=== PATIENT | female | born 1955 | race Two or more races ===

== ENCOUNTER 2016-08-17 16:51 | Inpatient (IN) | payer OTHER ==
[~2016-08-17] VITALS: Ht 152.4 cm; Wt 59.9 kg
[2016-08-17] MEDS ORDERED: DOCU100T9 PO (17:09)
[2016-08-17] MEDS ORDERED: PROP10TA10 PO (17:09)
[2016-08-17] MEDS ORDERED: IV NS 0.9% 500 ML IV ONE (17:22)
[2016-08-17] MEDS ORDERED: IV SET PRIMARY PUMP SET 1 EA INFUS.SET MC ONE ×3 (17:22→21:49)
[2016-08-17] MEDS ORDERED: IV NS 0.9% 500 ML BAG IV ONE (17:30)
[2016-08-17 18:02] LABS: BASOPHILS % (AUTO) 0.4 % (0.0-2.0); EOSINOPHILS % (AUTO) 1.2 % (0.0-6.0); HEMATOCRIT 25 % (33-45); HEMOGLOBIN 8.4 g/dL (11.5-14.8); LYMPHOCYTES # (AUTO) 0.6 /CMM (0.8-4.8); LYMPHOCYTES % (AUTO) 15.9 % (20.0-44.0); MEAN CORPUSCULAR HEMOGLOBIN 31 PG (26.0-33.0); MEAN CORPUSCULAR HGB CONC 34 g/dl (31.0-36.0); MEAN CORPUSCULAR VOLUME 91 fL (82-100); MONOCYTES # (AUTO) 0.4 /CMM (0.1-1.30); MONOCYTES % (AUTO) 8.6 % (2.0-12.0); NEUTROPHILS % (AUTO) 73.9 % (43.0-81.0); PLATELET COUNT (AUTO) 60 /CMM (150-450); RED BLOOD CELL COUNT(AUTO) 2.75 MIL/uL (4.0-5.2); WHITE BLOOD COUNT (AUTO) 4.1 K/uL (4.3-11.0)
[2016-08-17 18:18] LABS: DIFF TOTAL % 100 %
[2016-08-17 18:24] LABS: ANION GAP 13 (5-14); CALCIUM, SERUM 8.8 mg/dL (8.5-10.1); CARBON DIOXIDE 24 mmol/L (21-32); CHLORIDE 109 mmol/L (98-107); CREATININE 3.9 mg/dL (0.6-1.3); GFR 12 mL/min (>60); GLUCOSE 250 mg/dL (74-106); POTASSIUM 4.3 mmol/L (3.5-5.1); SODIUM SERUM 142 mmol/L (136-145); UREA NITROGEN, BLOOD 69 mg/dL (7-18)
[2016-08-17 18:29] LABS: ALANINE AMINOTRANSFERASE 25 U/L (12-78); ALBUMIN 2.2 g/dL (3.4-5.0); ASPARTATE AMINOTRANSFERASE 27 U/L (15-37); BILIRUBIN,DIRECT 1.6 mg/dL (0.0-0.2); BILIRUBIN,TOTAL 2.8 mg/dL (0.2-1.0); INDIRECT BILIRUBIN 1.2 mg/dL (0.0-1.1); TOTAL PROTEIN, SERUM 6.8 g/dL (6.4-8.2)
[2016-08-17 18:47] LABS: ANISOCYTOSIS 1+; BAND % (MANUAL) 1 % (0.0-5.0); EOSINOPHILS % (MANUAL) 1 % (0-4); LYMPHOCYTES % (MANUAL) 16 % (16-48); PLATELET ESTIMATE DECRE
[2016-08-17 19:05] LABS: LACTIC ACID 2.5 mmol/L (0.4-2.0)
[2016-08-17 19:12] LABS: *LACTIC ACID REFLEX FLAG YES
[2016-08-17] MEDS ORDERED: LEVOFLOXACIN 750 MG /D5W 150ML 150 ML IV ONE ×2 (19:30→19:33)
[2016-08-17] MEDS ORDERED: METRONIDAZOLE 500MG/ NS 100ML 100 ML IV ONE ×2 (19:30→19:33)
[2016-08-17] MEDS ORDERED: IV NS 0.9% 1,000 ML BAG IV ONE (19:30)
[2016-08-17] MEDS ORDERED: LACTULOSE 10 G/15 ML UDC (PYXIS) GT ONE (19:30)
[2016-08-17] MEDS ORDERED: LACTULOSE 10 G/15 ML UDC (PYXIS) ONE (19:33)
[2016-08-17] MEDS ORDERED: IV NS 0.9% 1,000 ML ONE ×2 (19:33→21:48)
[2016-08-17] MEDS ORDERED: IV SET PRIMARY 1 EA INFUS.SET MC ONE (19:33)
[2016-08-17 20:07] LABS: INR 1.24 (0.87-1.13); PROTHROMBIN TIME 13.4 SECS (9.5-12.7)
[2016-08-17 20:44] LABS: ADD UA MICROSCOPIC NO; KETONES,URINE NEGATIVE (NEGATIVE); LEUKOCYTE ESTERASE ,URINE NEGATIVE (NEGATIVE); PH,URINE 5.5 (5.0-8.0)
[2016-08-17] MEDS ORDERED: MAG HYDROX/AL HYDROX/SIMETH 30 ML UDC PO PRN (21:00)
[2016-08-17] MEDS ORDERED: LACTULOSE 10 G/15 ML UDC (PYXIS) PO PRN (21:00)
[2016-08-17] MEDS ORDERED: PROPRANOLOL HCL 10 MG TABLET PO SCH (21:00)
[2016-08-17] MEDS ORDERED: MAGNESIUM HYDROXIDE 30 ML UDC PO PRN (21:00)
[2016-08-17] MEDS ORDERED: Z GUARD REMEDY 2 OZ OINT TP PRN (21:00)
[2016-08-17 21:40] VITALS: BP 119/50
[2016-08-17] MEDS: IV NS 0.9% 1,000 ML IV PRN (21:53)
[2016-08-18] VITALS: BP 102/47
[2016-08-18 04:00] VITALS: BP 111/51
[2016-08-18 07:14] LABS: BASOPHILS % (AUTO) 0.7 % (0.0-2.0); DIFF TOTAL % 100 %; EOSINOPHILS % (AUTO) 1.4 % (0.0-6.0); HEMATOCRIT 24 % (33-45); HEMOGLOBIN 8.2 g/dL (11.5-14.8); LYMPHOCYTES # (AUTO) 0.5 /CMM (0.8-4.8); LYMPHOCYTES % (AUTO) 17.7 % (20.0-44.0); MEAN CORPUSCULAR HEMOGLOBIN 32 PG (26.0-33.0); MEAN CORPUSCULAR HGB CONC 34 g/dl (31.0-36.0); MEAN CORPUSCULAR VOLUME 92 fL (82-100); MONOCYTES # (AUTO) 0.3 /CMM (0.1-1.30); MONOCYTES % (AUTO) 11.8 % (2.0-12.0); NEUTROPHILS # (AUTO) 1.8 /CMM (1.8-8.9); NEUTROPHILS % (AUTO) 68.4 % (43.0-81.0); RED BLOOD CELL COUNT(AUTO) 2.62 MIL/uL (4.0-5.2); WHITE BLOOD COUNT (AUTO) 2.6 K/uL (4.3-11.0)
[2016-08-18 07:36] LABS: CALCIUM, SERUM 8.9 mg/dL (8.5-10.1); CREATININE 3.6 mg/dL (0.6-1.3); PHOSPHORUS 3.5 mg/dL (2.5-4.9); POTASSIUM 3.6 mmol/L (3.5-5.1)
[2016-08-18 08:00] VITALS: BP 138/48
[2016-08-18 08:02] LABS: PLATELET COUNT (AUTO) 48 /CMM (150-450)
[2016-08-18 08:08] LABS: BAND % (MANUAL) 3 % (0.0-5.0); EOSINOPHILS % (MANUAL) 2 % (0-4); LYMPHOCYTES % (MANUAL) 19 % (16-48); PLATELET ESTIMATE DECREASED
[2016-08-18] MEDS: PANTOPRAZOLE 40 MG TABLET.DR PO SCH (10:09)
[2016-08-18] MEDS: PROPRANOLOL HCL 10 MG TABLET PO SCH (10:10)
[2016-08-18] MEDS: IV NS 0.9% 1,000 ML IV PRN (12:46)
[2016-08-18 16:00] VITALS: BP 115/50
[2016-08-18 20:00] VITALS: BP 99/46
[2016-08-18] MEDS ORDERED: LEVOFLOXACIN 250 MG /D5W 50 ML 250 MG in PREMIX 1 EA IV SCH (20:00)
[2016-08-18] MEDS ORDERED: LEVOFLOXACIN 250 MG /D5W 50 ML 250 MG/50 ML PIGGYBACK IV ONE (21:00)
[2016-08-19] VITALS (8 sets, daily range): BP systolic 91–97; BP diastolic 42–51
[2016-08-19] MEDS: IV NS 0.9% 1,000 ML IV PRN ×2 (02:28→17:13)
[2016-08-19] MEDS ORDERED: PLATELET IV SET 1 EA INFUS.SET MC ONE (02:50)
[2016-08-19 08:15] LABS: BASOPHILS % (AUTO) 0.8 % (0.0-2.0); DIFF TOTAL % 100 %; EOSINOPHILS % (AUTO) 1.8 % (0.0-6.0); HEMATOCRIT 21 % (33-45); HEMOGLOBIN 7.2 g/dL (11.5-14.8); LYMPHOCYTES # (AUTO) 0.6 /CMM (0.8-4.8); LYMPHOCYTES % (AUTO) 25.8 % (20.0-44.0); MEAN CORPUSCULAR HEMOGLOBIN 32 PG (26.0-33.0); MEAN CORPUSCULAR HGB CONC 34 g/dl (31.0-36.0); MEAN CORPUSCULAR VOLUME 92 fL (82-100); MONOCYTES # (AUTO) 0.3 /CMM (0.1-1.30); MONOCYTES % (AUTO) 13.6 % (2.0-12.0); NEUTROPHILS # (AUTO) 1.3 /CMM (1.8-8.9); PLATELET COUNT (AUTO) 60 /CMM (150-450); WHITE BLOOD COUNT (AUTO) 2.2 K/uL (4.3-11.0)
[2016-08-19 08:30] LABS: BILIRUBIN,TOTAL 1.9 mg/dL (0.2-1.0); CALCIUM, SERUM 8.9 mg/dL (8.5-10.1); CREATININE 3.5 mg/dL (0.6-1.3); PHOSPHORUS 3.4 mg/dL (2.5-4.9); POTASSIUM 3.7 mmol/L (3.5-5.1); TOTAL PROTEIN, SERUM 6.1 g/dL (6.4-8.2)
[2016-08-19] MEDS: PROPRANOLOL HCL 10 MG TABLET PO SCH (08:30)
[2016-08-19] MEDS: PANTOPRAZOLE 40 MG TABLET.DR PO SCH (09:13)
[2016-08-19] MEDS: LACTULOSE 10 G/15 ML UDC (PYXIS) PO SCH ×3 (12:44→20:33)
[2016-08-19 14:52] LABS: CREATININE, URINE 128.7 MG/DL (30.0-125.0); URINE SODIUM, RANDOM < 5 mmol/l (40-220)
[2016-08-19 14:59] LABS: ADD UA MICROSCOPIC NO; KETONES,URINE NEGATIVE (NEGATIVE); LEUKOCYTE ESTERASE ,URINE NEGATIVE (NEGATIVE); PH,URINE 5.5 (5.0-8.0)
[2016-08-19 17:51] LABS: PROTEIN, BODY FLUID < 2.0 G/DL
[2016-08-19 18:01] LABS: GLUCOSE,BODY FLUID 244 mg/dL; LDH, BODY FLUID 35 U/L
[2016-08-19 18:18] LABS: APPEARANCE,UNSPUN,BODY FLUID CLEAR (CLEAR); COLOR,BODY FLUID YELLOW (LT YELLOW); RBC, BODY FLUID 228 /cu. mm. (0-2000); WBC, BODY FLUID 43 /cu. mm. (0-200)
[2016-08-19 18:54] LABS: POLYNUCLEAR, BODY FLUID 16 % (0-25)
[2016-08-19] MEDS ORDERED: LEVOFLOXACIN (250MG) 250 MG TABLET PO SCH (20:00)
[2016-08-19] MEDS ORDERED: LEVOFLOXACIN 250 MG /D5W 50 ML 250 MG in PREMIX 1 EA IV SCH (20:00)
[2016-08-19] MEDS: LEVOFLOXACIN (250MG) 250 MG TABLET PO SCH (20:32)
[2016-08-19] MEDS: NYSTATIN (PYXIS) 500,000 UNIT/5 ML ORAL.SUSP PO SCH (20:34)
[2016-08-20] MEDS: LACTULOSE 10 G/15 ML UDC (PYXIS) PO SCH ×6 (01:15→21:25)
[2016-08-20 04:00] VITALS: BP 98/49
[2016-08-20] MEDS: PANTOPRAZOLE 40 MG TABLET.DR PO SCH (07:30)
[2016-08-20 07:50] LABS: BASOPHILS % (AUTO) 0.6 % (0.0-2.0); DIFF TOTAL % 100 %; EOSINOPHILS % (AUTO) 2.4 % (0.0-6.0); HEMATOCRIT 23 % (33-45); LYMPHOCYTES # (AUTO) 0.5 /CMM (0.8-4.8); LYMPHOCYTES % (AUTO) 22.6 % (20.0-44.0); MEAN CORPUSCULAR HEMOGLOBIN 32 PG (26.0-33.0); MEAN CORPUSCULAR HGB CONC 34 g/dl (31.0-36.0); MEAN CORPUSCULAR VOLUME 92 fL (82-100); MONOCYTES # (AUTO) 0.3 /CMM (0.1-1.30); MONOCYTES % (AUTO) 13.8 % (2.0-12.0); NEUTROPHILS # (AUTO) 1.2 /CMM (1.8-8.9); NEUTROPHILS % (AUTO) 60.6 % (43.0-81.0); PLATELET COUNT (AUTO) 51 /CMM (150-450); RED BLOOD CELL COUNT(AUTO) 2.52 MIL/uL (4.0-5.2)
[2016-08-20 08:00] VITALS: BP 97/51
[2016-08-20 08:16] LABS: *SPE ALBUMIN 2.3 g/dL (2.9-4.4)
[2016-08-20 08:25] LABS: CALCIUM, SERUM 8.6 mg/dL (8.5-10.1); CREATININE 3.2 mg/dL (0.6-1.3); POTASSIUM 3.1 mmol/L (3.5-5.1)
[2016-08-20] MEDS: PROPRANOLOL HCL 10 MG TABLET PO SCH (09:00)
[2016-08-20] MEDS: NYSTATIN (PYXIS) 500,000 UNIT/5 ML ORAL.SUSP PO SCH ×3 (09:00→17:00)
[2016-08-20] MEDS ORDERED: POTASSIUM CHLORIDE 20 MEQ TAB.PRT.SR PO ONE (11:00)
[2016-08-20 12:14] LABS: PTH, INTACT 289 pg/mL (15-65)
[2016-08-20] MEDS ORDERED: POTASSIUM CHLORIDE 20 MEQ TAB.PRT.SR PO SCH (12:30)
[2016-08-20 13:43] LABS: ANISOCYTOSIS 1+; EOSINOPHILS % (MANUAL) 3 % (0-4); LYMPHOCYTES % (MANUAL) 15 % (16-48); PLATELET ESTIMATE DECREASED
[2016-08-20] MEDS ORDERED: SECONDARY IV SET 1 EA INFUS.SET MC ONE (14:30)
[2016-08-20] MEDS: Magnesium 1GM/D5W 100ML PREMIX 100 ML IV SCH ×4 (14:34→21:25)
[2016-08-20] MEDS ORDERED: IV SET PRIMARY PUMP SET 1 EA INFUS.SET MC ONE (14:35)
[2016-08-20 14:44] LABS: THYROID STIMULATING HORMONE 0.964 uIU/mL (0.358-3.74)
[2016-08-20 20:00] VITALS: BP 103/59
[2016-08-20] MEDS ORDERED: Magnesium 1GM/D5W 100ML PREMIX 100 ML IV ONE (21:20)
[2016-08-20] MEDS: LEVOFLOXACIN (250MG) 250 MG TABLET PO SCH (21:25)
[2016-08-21] MEDS: LACTULOSE 10 G/15 ML UDC (PYXIS) PO SCH ×6 (01:12→20:30)
[2016-08-21 04:00] VITALS: BP 96/56
[2016-08-21 07:47] LABS: CALCIUM, SERUM 9.3 mg/dL (8.5-10.1); CREATININE 3.4 mg/dL (0.6-1.3); PHOSPHORUS 3.9 mg/dL (2.5-4.9)
[2016-08-21 07:59] LABS: BASOPHILS % (AUTO) 0.3 % (0.0-2.0); DIFF TOTAL % 100 %; EOSINOPHILS # (AUTO) 0.1 /CMM (0.0-0.7); EOSINOPHILS % (AUTO) 2.9 % (0.0-6.0); HEMATOCRIT 27 % (33-45); HEMOGLOBIN 9.4 g/dL (11.5-14.8); LYMPHOCYTES # (AUTO) 0.7 /CMM (0.8-4.8); LYMPHOCYTES % (AUTO) 17.8 % (20.0-44.0); MEAN CORPUSCULAR HEMOGLOBIN 32 PG (26.0-33.0); MEAN CORPUSCULAR HGB CONC 34 g/dl (31.0-36.0); MEAN CORPUSCULAR VOLUME 93 fL (82-100); MONOCYTES # (AUTO) 0.4 /CMM (0.1-1.30); MONOCYTES % (AUTO) 9.9 % (2.0-12.0); NEUTROPHILS # (AUTO) 2.7 /CMM (1.8-8.9); NEUTROPHILS % (AUTO) 69.1 % (43.0-81.0); PLATELET COUNT (AUTO) 56 /CMM (150-450); RED BLOOD CELL COUNT(AUTO) 2.93 MIL/uL (4.0-5.2)
[2016-08-21 08:00] VITALS: BP 112/57
[2016-08-21] MEDS: NYSTATIN (PYXIS) 500,000 UNIT/5 ML ORAL.SUSP PO SCH ×3 (08:01→16:37)
[2016-08-21] MEDS: PANTOPRAZOLE 40 MG TABLET.DR PO SCH (08:01)
[2016-08-21] MEDS: PROPRANOLOL HCL 10 MG TABLET PO SCH (08:02)
[2016-08-21] MEDS ORDERED: *INSULIN REGULAR(HUMULIN R)HUM 100 UNIT/ML VIAL SQ PRN (09:30)
[2016-08-21] MEDS ORDERED: DEXTROSE 50%-WATER 50 ML DISP.SYRIN IV PRN (09:30)
[2016-08-21] MEDS: INSULIN REGULAR, HUMAN 100 UNIT/ML 3 ML VIAL SQ PRN ×2 (11:56→22:35)
[2016-08-21] MEDS: BLOOD SUGAR DIAGNOSTIC 1 EACH STRIP VI SCH ×3 (11:58→22:32)
[2016-08-21 12:00] VITALS: BP 112/57
[2016-08-21] MEDS ORDERED: BLOOD SUGAR DIAGNOSTIC 1 EACH STRIP IN SCH (12:00)
[2016-08-21 16:00] VITALS: BP 99/52
[2016-08-21 20:00] VITALS: BP 105/50
[2016-08-21] MEDS: LEVOFLOXACIN (250MG) 250 MG TABLET PO SCH (20:30)
[2016-08-22] MEDS: LACTULOSE 10 G/15 ML UDC (PYXIS) PO SCH ×6 (01:17→21:21)
[2016-08-22 04:00] VITALS: BP 100/54
[2016-08-22] MEDS: BLOOD SUGAR DIAGNOSTIC 1 EACH STRIP VI SCH ×4 (07:30→21:21)
[2016-08-22 08:00] VITALS: BP 91/44
[2016-08-22 08:10] LABS: CALCIUM, SERUM 9.1 mg/dL (8.5-10.1); CREATININE 3.7 mg/dL (0.6-1.3)
[2016-08-22] MEDS: PROPRANOLOL HCL 10 MG TABLET PO SCH (10:19)
[2016-08-22] MEDS: PANTOPRAZOLE 40 MG TABLET.DR PO SCH (10:19)
[2016-08-22] MEDS: HYDROCODONE/APAP 5/325MG 1 EACH TABLET PO PRN (10:20)
[2016-08-22] MEDS: NYSTATIN (PYXIS) 500,000 UNIT/5 ML ORAL.SUSP PO SCH ×3 (10:20→17:00)
[2016-08-22 12:00] VITALS: BP 110/41
[2016-08-22 13:22] LABS: ALBUMIN 2.2 g/dL (3.4-5.0); BILIRUBIN,DIRECT 0.9 mg/dL (0.0-0.2); BILIRUBIN,TOTAL 1.8 mg/dL (0.2-1.0); INDIRECT BILIRUBIN 0.9 mg/dL (0.0-1.1); TOTAL PROTEIN, SERUM 6.7 g/dL (6.4-8.2)
[2016-08-22] MEDS ORDERED: IV SET PRIMARY PUMP SET 1 EA INFUS.SET MC ONE (17:58)
[2016-08-22] MEDS ORDERED: IV NS 0.9% 250 ML IV ONE (17:58)
[2016-08-22] MEDS ORDERED: SECONDARY IV SET 1 EA INFUS.SET MC ONE (17:58)
[2016-08-22] MEDS: ALBUMIN 25% 25 GM in PREMIX 1 EA IV SCH ×2 (18:02→21:41)
[2016-08-22 20:00] VITALS: BP 114/61
[2016-08-22] MEDS: INSULIN REGULAR, HUMAN 100 UNIT/ML 3 ML VIAL SQ PRN (21:25)
[2016-08-23] MEDS: LACTULOSE 10 G/15 ML UDC (PYXIS) PO SCH ×6 (00:52→21:32)
[2016-08-23] MEDS: ALBUMIN 25% 25 GM in PREMIX 1 EA IV SCH ×2 (03:52→09:25)
[2016-08-23 04:00] VITALS: BP 91/49
[2016-08-23 04:11] VITALS: BP 91/49
[2016-08-23] MEDS: BLOOD SUGAR DIAGNOSTIC 1 EACH STRIP VI SCH ×4 (06:33→21:31)
[2016-08-23] MEDS: INSULIN REGULAR, HUMAN 100 UNIT/ML 3 ML VIAL SQ PRN ×4 (06:37→21:37)
[2016-08-23 07:34] LABS: CALCIUM, SERUM 9.3 mg/dL (8.5-10.1); CREATININE 3.9 mg/dL (0.6-1.3); POTASSIUM 4.5 mmol/L (3.5-5.1)
[2016-08-23 08:00] VITALS: BP_SYST 109; BP_DIAS 45; BP_DIAS 65
[2016-08-23] MEDS: PROPRANOLOL HCL 10 MG TABLET PO SCH (08:02)
[2016-08-23] MEDS: NYSTATIN (PYXIS) 500,000 UNIT/5 ML ORAL.SUSP PO SCH ×3 (08:02→16:40)
[2016-08-23] MEDS: PANTOPRAZOLE 40 MG TABLET.DR PO SCH (08:02)
[2016-08-23] MEDS: MIDODRINE HCL (5MG) 5 MG TABLET PO SCH ×2 (12:55→16:49)
[2016-08-23] MEDS ORDERED: OCTREOTIDE 50 MCG/ML AMPUL SQ SCH (13:00)
[2016-08-23] MEDS: OCTREOTIDE 100 MCG/ML VIAL SQ SCH ×2 (13:21→16:51)
[2016-08-23 16:00] VITALS: BP 103/48
[2016-08-23 20:00] VITALS: BP 105/34
[2016-08-24] MEDS: LACTULOSE 10 G/15 ML UDC (PYXIS) PO SCH ×6 (01:24→21:11)
[2016-08-24 04:00] VITALS: BP 103/56
[2016-08-24] MEDS: BLOOD SUGAR DIAGNOSTIC 1 EACH STRIP VI SCH ×4 (06:34→21:12)
[2016-08-24] MEDS: INSULIN REGULAR, HUMAN 100 UNIT/ML 3 ML VIAL SQ PRN ×2 (06:37→12:58)
[2016-08-24 07:32] LABS: BILIRUBIN,TOTAL 2.1 mg/dL (0.2-1.0); CALCIUM, SERUM 9.1 mg/dL (8.5-10.1); CREATININE 4.9 mg/dL (0.6-1.3); POTASSIUM 4.5 mmol/L (3.5-5.1); TOTAL PROTEIN, SERUM 6.1 g/dL (6.4-8.2)
[2016-08-24 08:00] VITALS: BP_SYST 98; BP_DIAS 37; BP_DIAS 77
[2016-08-24] MEDS: PROPRANOLOL HCL 10 MG TABLET PO SCH (09:00)
[2016-08-24] MEDS: NYSTATIN (PYXIS) 500,000 UNIT/5 ML ORAL.SUSP PO SCH ×3 (09:21→16:17)
[2016-08-24] MEDS: MIDODRINE HCL (5MG) 5 MG TABLET PO SCH ×3 (09:21→16:17)
[2016-08-24] MEDS: PANTOPRAZOLE 40 MG TABLET.DR PO SCH (09:21)
[2016-08-24] MEDS: OCTREOTIDE 100 MCG/ML VIAL SQ SCH ×3 (09:23→16:17)
[2016-08-24 15:40] LABS: CREATININE, URINE 317.8 MG/DL (30.0-125.0); URINE SODIUM, RANDOM < 5 mmol/l (40-220)
[2016-08-24 15:44] LABS: KETONES,URINE 1+ (NEGATIVE); LEUKOCYTE ESTERASE ,URINE 1+ (NEGATIVE)
[2016-08-24 15:47] LABS: ADD UA MICROSCOPIC YES
[2016-08-24 16:00] VITALS: BP 92/40
[2016-08-24 16:07] LABS: ADD URINE CULTURE YES; RBC,URINE 0-2 /HPF (0-2)
[2016-08-24] MEDS: HYDROCODONE/APAP 5/325MG 1 EACH TABLET PO PRN (19:57)
[2016-08-24 20:00] VITALS: BP 90/48
[2016-08-25] MEDS: LACTULOSE 10 G/15 ML UDC (PYXIS) PO SCH ×6 (01:40→20:56)
[2016-08-25 04:00] VITALS: BP_SYST 80; BP_SYST 91; BP_DIAS 42; BP_DIAS 43
[2016-08-25] MEDS: BLOOD SUGAR DIAGNOSTIC 1 EACH STRIP VI SCH ×4 (07:30→21:27)
[2016-08-25 07:42] LABS: CALCIUM, SERUM 8.9 mg/dL (8.5-10.1); CREATININE 6.2 mg/dL (0.6-1.3); POTASSIUM 4.4 mmol/L (3.5-5.1)
[2016-08-25 08:00] VITALS: BP 90/50
[2016-08-25] MEDS: OCTREOTIDE 100 MCG/ML VIAL SQ SCH ×3 (08:44→16:52)
[2016-08-25] MEDS: NYSTATIN (PYXIS) 500,000 UNIT/5 ML ORAL.SUSP PO SCH ×3 (08:44→16:52)
[2016-08-25] MEDS: MIDODRINE HCL (5MG) 5 MG TABLET PO SCH ×3 (08:45→16:52)
[2016-08-25] MEDS: PROPRANOLOL HCL 10 MG TABLET PO SCH (08:45)
[2016-08-25] MEDS: PANTOPRAZOLE 40 MG TABLET.DR PO SCH (08:45)
[2016-08-25 16:00] VITALS: BP 108/45
[2016-08-25 19:47] VITALS: BP 96/45
[2016-08-25 20:00] VITALS: BP 96/45
[2016-08-25] MEDS: INSULIN REGULAR, HUMAN 100 UNIT/ML 3 ML VIAL SQ PRN (21:26)
[2016-08-26] VITALS: BP 112/50
[2016-08-26] MEDS: LACTULOSE 10 G/15 ML UDC (PYXIS) PO SCH ×6 (01:20→20:58)
[2016-08-26 04:00] VITALS: BP 98/51
[2016-08-26 05:22] VITALS: BP 98/51
[2016-08-26] MEDS: BLOOD SUGAR DIAGNOSTIC 1 EACH STRIP VI SCH ×4 (05:37→21:30)
[2016-08-26] MEDS: ONDANSETRON HCL/PF 4 MG/2 ML VIAL IVP PRN (06:44)
[2016-08-26 06:55] LABS: BASOPHILS # (AUTO) 0.1 /CMM (0.0-0.2); BASOPHILS % (AUTO) 0.6 % (0.0-2.0); DIFF TOTAL % 100 %; EOSINOPHILS # (AUTO) 0.3 /CMM (0.0-0.7); EOSINOPHILS % (AUTO) 3.8 % (0.0-6.0); HEMATOCRIT 26 % (33-45); HEMOGLOBIN 8.5 g/dL (11.5-14.8); LYMPHOCYTES # (AUTO) 1.3 /CMM (0.8-4.8); LYMPHOCYTES % (AUTO) 15.7 % (20.0-44.0); MEAN CORPUSCULAR HEMOGLOBIN 31 PG (26.0-33.0); MEAN CORPUSCULAR HGB CONC 33 g/dl (31.0-36.0); MEAN CORPUSCULAR VOLUME 95 fL (82-100); MONOCYTES # (AUTO) 0.9 /CMM (0.1-1.30); MONOCYTES % (AUTO) 11.1 % (2.0-12.0); NEUTROPHILS # (AUTO) 5.6 /CMM (1.8-8.9); NEUTROPHILS % (AUTO) 68.8 % (43.0-81.0); PLATELET COUNT (AUTO) 80 /CMM (150-450); RED BLOOD CELL COUNT(AUTO) 2.72 MIL/uL (4.0-5.2); WHITE BLOOD COUNT (AUTO) 8.1 K/uL (4.3-11.0)
[2016-08-26 07:16] LABS: CALCIUM, SERUM 9.1 mg/dL (8.5-10.1); CREATININE 7.4 mg/dL (0.6-1.3); POTASSIUM 4.4 mmol/L (3.5-5.1)
[2016-08-26 08:00] VITALS: BP 108/40
[2016-08-26] MEDS: OCTREOTIDE 100 MCG/ML VIAL SQ SCH ×3 (08:41→16:40)
[2016-08-26] MEDS: NYSTATIN (PYXIS) 500,000 UNIT/5 ML ORAL.SUSP PO SCH ×3 (08:42→16:40)
[2016-08-26] MEDS: PROPRANOLOL HCL 10 MG TABLET PO SCH (08:42)
[2016-08-26] MEDS: PANTOPRAZOLE 40 MG TABLET.DR PO SCH (08:42)
[2016-08-26] MEDS: MIDODRINE HCL (5MG) 5 MG TABLET PO SCH ×3 (08:42→16:42)
[2016-08-26] MEDS: INSULIN REGULAR, HUMAN 100 UNIT/ML 3 ML VIAL SQ PRN ×2 (11:44→17:35)
[2016-08-26 13:35] LABS: INR 1.22 (0.87-1.13); PROTHROMBIN TIME 13.2 SECS (9.5-12.7)
[2016-08-26 16:00] VITALS: BP 118/78
[2016-08-26 20:00] VITALS: BP 106/41
[2016-08-27] MEDS: LACTULOSE 10 G/15 ML UDC (PYXIS) PO SCH ×6 (01:00→20:29)
[2016-08-27 04:00] VITALS: BP 91/37
[2016-08-27] MEDS: BLOOD SUGAR DIAGNOSTIC 1 EACH STRIP VI SCH ×4 (04:55→22:28)
[2016-08-27 07:13] LABS: BASOPHILS % (AUTO) 0.8 % (0.0-2.0); DIFF TOTAL % 100 %; EOSINOPHILS # (AUTO) 0.2 /CMM (0.0-0.7); HEMATOCRIT 24 % (33-45); LYMPHOCYTES # (AUTO) 0.8 /CMM (0.8-4.8); LYMPHOCYTES % (AUTO) 13.8 % (20.0-44.0); MEAN CORPUSCULAR HEMOGLOBIN 32 PG (26.0-33.0); MEAN CORPUSCULAR HGB CONC 34 g/dl (31.0-36.0); MEAN CORPUSCULAR VOLUME 95 fL (82-100); MONOCYTES # (AUTO) 0.7 /CMM (0.1-1.30); MONOCYTES % (AUTO) 12.8 % (2.0-12.0); NEUTROPHILS # (AUTO) 3.9 /CMM (1.8-8.9); NEUTROPHILS % (AUTO) 68.6 % (43.0-81.0); PLATELET COUNT (AUTO) 58 /CMM (150-450); RED BLOOD CELL COUNT(AUTO) 2.51 MIL/uL (4.0-5.2); WHITE BLOOD COUNT (AUTO) 5.6 K/uL (4.3-11.0)
[2016-08-27 07:32] LABS: CALCIUM, SERUM 9.1 mg/dL (8.5-10.1); POTASSIUM 5.1 mmol/L (3.5-5.1)
[2016-08-27 07:47] LABS: CREATININE 8.4 mg/dL (0.6-1.3)
[2016-08-27 08:00] VITALS: BP 80/30
[2016-08-27 08:09] LABS: BAND % (MANUAL) 3 % (0.0-5.0); EOSINOPHILS % (MANUAL) 5 % (0-4); LYMPHOCYTES % (MANUAL) 14 % (16-48); PLATELET ESTIMATE DECREASED
[2016-08-27] MEDS: NYSTATIN (PYXIS) 500,000 UNIT/5 ML ORAL.SUSP PO SCH ×3 (08:21→17:00)
[2016-08-27] MEDS: PANTOPRAZOLE 40 MG TABLET.DR PO SCH (08:22)
[2016-08-27] MEDS: MIDODRINE HCL (5MG) 5 MG TABLET PO SCH ×3 (08:23→17:00)
[2016-08-27] MEDS: PROPRANOLOL HCL 10 MG TABLET PO SCH (08:23)
[2016-08-27] MEDS: OCTREOTIDE 100 MCG/ML VIAL SQ SCH ×3 (10:25→17:10)
[2016-08-27] MEDS ORDERED: IV NS 0.9% 1,000 ML BAG IV ONE (10:30)
[2016-08-27] MEDS ORDERED: IV NS 0.9% 500 ML IV ONE (10:30)
[2016-08-27] MEDS ORDERED: IV SET PRIMARY PUMP SET 1 EA INFUS.SET MC ONE (10:52)
[2016-08-27] MEDS ORDERED: EPOETIN ALFA (10,000 UNIT) 10,000 UNIT/ML VIAL IV ONE (13:00)
[2016-08-27] MEDS: ALBUMIN 25% 25 GM in PREMIX 1 EA IV SCH ×3 (15:26→22:24)
[2016-08-27 16:00] VITALS: BP 79/41
[2016-08-27] MEDS ORDERED: SECONDARY IV SET 1 EA INFUS.SET MC ONE (18:01)
[2016-08-27 20:00] VITALS: BP 85/42
[2016-08-28] VITALS (7 sets, daily range): BP systolic 81–123; BP diastolic 41–91
[2016-08-28] MEDS: LACTULOSE 10 G/15 ML UDC (PYXIS) PO SCH ×6 (00:25→21:14)
[2016-08-28] MEDS: ONDANSETRON HCL/PF 4 MG/2 ML VIAL IVP PRN (00:56)
[2016-08-28] MEDS: ALBUMIN 25% 25 GM in PREMIX 1 EA IV SCH (03:18)
[2016-08-28] MEDS: BLOOD SUGAR DIAGNOSTIC 1 EACH STRIP VI SCH ×4 (07:09→21:20)
[2016-08-28] MEDS: PROPRANOLOL HCL 10 MG TABLET PO SCH (09:00)
[2016-08-28] MEDS: NYSTATIN (PYXIS) 500,000 UNIT/5 ML ORAL.SUSP PO SCH ×3 (09:28→17:05)
[2016-08-28] MEDS: PANTOPRAZOLE 40 MG TABLET.DR PO SCH (09:28)
[2016-08-28] MEDS: MIDODRINE HCL (5MG) 5 MG TABLET PO SCH ×3 (09:28→17:05)
[2016-08-28 09:29] LABS: BASOPHILS % (AUTO) 0.4 % (0.0-2.0); DIFF TOTAL % 100 %; EOSINOPHILS % (AUTO) 0.7 % (0.0-6.0); LYMPHOCYTES # (AUTO) 0.3 /CMM (0.8-4.8); LYMPHOCYTES % (AUTO) 15.7 % (20.0-44.0); MEAN CORPUSCULAR HEMOGLOBIN 32 PG (26.0-33.0); MEAN CORPUSCULAR HGB CONC 34 g/dl (31.0-36.0); MEAN CORPUSCULAR VOLUME 95 fL (82-100); MONOCYTES # (AUTO) 0.3 /CMM (0.1-1.30); MONOCYTES % (AUTO) 12.4 % (2.0-12.0); NEUTROPHILS # (AUTO) 1.5 /CMM (1.8-8.9); NEUTROPHILS % (AUTO) 70.8 % (43.0-81.0); WHITE BLOOD COUNT (AUTO) 2.2 K/uL (4.3-11.0)
[2016-08-28] MEDS: OCTREOTIDE 100 MCG/ML VIAL SQ SCH ×3 (09:29→17:07)
[2016-08-28 09:37] LABS: CALCIUM, SERUM 9.4 mg/dL (8.5-10.1); POTASSIUM 4.4 mmol/L (3.5-5.1)
[2016-08-28 09:38] LABS: HEMATOCRIT 18 % (33-45); HEMOGLOBIN 6.1 g/dL (11.5-14.8)
[2016-08-28 09:39] LABS: PLATELET COUNT (AUTO) 31 /CMM (150-450)
[2016-08-28 10:28] LABS: EOSINOPHILS % (MANUAL) 1 % (0-4); LYMPHOCYTES % (MANUAL) 13 % (16-48); PLATELET ESTIMATE DECREASED
[2016-08-28 10:29] LABS: ANISOCYTOSIS 1+; HYPOCHROMASIA 1+
[2016-08-28] MEDS ORDERED: IV NS 0.9% 250 ML IV ONE (15:53)
[2016-08-28] MEDS ORDERED: BLOOD IV SET 1 EA INFUS.SET MC ONE (15:53)
[2016-08-29] MEDS: BLOOD SUGAR DIAGNOSTIC 1 EACH STRIP VI SCH ×4 (01:00→17:38)
[2016-08-29] MEDS: HYDROCODONE/APAP 5/325MG 1 EACH TABLET PO PRN ×2 (01:07→13:33)
[2016-08-29] MEDS: LACTULOSE 10 G/15 ML UDC (PYXIS) PO SCH ×6 (01:07→20:33)
[2016-08-29 04:00] VITALS: BP 100/49
[2016-08-29 07:30] LABS: BASOPHILS % (AUTO) 0.5 % (0.0-2.0); DIFF TOTAL % 100 %; EOSINOPHILS # (AUTO) 0.1 /CMM (0.0-0.7); EOSINOPHILS % (AUTO) 2.5 % (0.0-6.0); HEMATOCRIT 29 % (33-45); HEMOGLOBIN 9.9 g/dL (11.5-14.8); LYMPHOCYTES # (AUTO) 0.8 /CMM (0.8-4.8); LYMPHOCYTES % (AUTO) 21.8 % (20.0-44.0); MEAN CORPUSCULAR HEMOGLOBIN 32 PG (26.0-33.0); MEAN CORPUSCULAR HGB CONC 34 g/dl (31.0-36.0); MEAN CORPUSCULAR VOLUME 92 fL (82-100); MONOCYTES # (AUTO) 0.5 /CMM (0.1-1.30); MONOCYTES % (AUTO) 13.7 % (2.0-12.0); NEUTROPHILS # (AUTO) 2.3 /CMM (1.8-8.9); NEUTROPHILS % (AUTO) 61.5 % (43.0-81.0); RED BLOOD CELL COUNT(AUTO) 3.15 MIL/uL (4.0-5.2); WHITE BLOOD COUNT (AUTO) 3.8 K/uL (4.3-11.0)
[2016-08-29] MEDS: PANTOPRAZOLE 40 MG TABLET.DR PO SCH (07:30)
[2016-08-29 07:50] LABS: BILIRUBIN,TOTAL 4.7 mg/dL (0.2-1.0); CALCIUM, SERUM 9.3 mg/dL (8.5-10.1); CREATININE 5.4 mg/dL (0.6-1.3); POTASSIUM 3.4 mmol/L (3.5-5.1); TOTAL PROTEIN, SERUM 6.4 g/dL (6.4-8.2)
[2016-08-29 08:00] VITALS: BP_SYST 80; BP_SYST 90; BP_DIAS 45; BP_DIAS 59
[2016-08-29 08:10] LABS: PLATELET COUNT (AUTO) 30 /CMM (150-450)
[2016-08-29 08:11] LABS: INR 1.69 (0.87-1.13); PROTHROMBIN TIME 18.3 SECS (9.5-12.7)
[2016-08-29] MEDS: PROPRANOLOL HCL 10 MG TABLET PO SCH (09:00)
[2016-08-29] MEDS: NYSTATIN (PYXIS) 500,000 UNIT/5 ML ORAL.SUSP PO SCH ×3 (09:00→17:37)
[2016-08-29] MEDS ORDERED: LIDOCAINE 1% INJ 50 ML MDV IJ ONE (09:00)
[2016-08-29] MEDS: OCTREOTIDE 100 MCG/ML VIAL SQ SCH ×3 (09:00→17:00)
[2016-08-29] MEDS: MIDODRINE HCL (5MG) 5 MG TABLET PO SCH ×3 (09:00→17:34)
[2016-08-29 10:17] LABS: EOSINOPHILS % (MANUAL) 2 % (0-4); LYMPHOCYTES % (MANUAL) 23 % (16-48)
[2016-08-29 10:18] LABS: ANISOCYTOSIS 1+; PLATELET ESTIMATE DECREASED
[2016-08-29 16:00] VITALS: BP 109/59
[2016-08-29 20:00] VITALS: BP 92/49
[2016-08-29] MEDS ORDERED: IV NS 0.9% 250 ML IV ONE (21:28)
[2016-08-29] MEDS ORDERED: BLOOD IV SET 1 EA INFUS.SET MC ONE (21:28)
[2016-08-29 21:43] VITALS: BP 92/49
[2016-08-29 22:40] VITALS: BP 90/56
[2016-08-30] VITALS (7 sets, daily range): BP systolic 83–113; BP diastolic 42–55
[2016-08-30] MEDS: LACTULOSE 10 G/15 ML UDC (PYXIS) PO SCH ×6 (01:19→21:18)
[2016-08-30 06:55] LABS: BASOPHILS % (AUTO) 0.5 % (0.0-2.0); DIFF TOTAL % 100 %; EOSINOPHILS # (AUTO) 0.1 /CMM (0.0-0.7); HEMATOCRIT 28 % (33-45); HEMOGLOBIN 9.5 g/dL (11.5-14.8); LYMPHOCYTES # (AUTO) 0.5 /CMM (0.8-4.8); LYMPHOCYTES % (AUTO) 16.2 % (20.0-44.0); MEAN CORPUSCULAR HEMOGLOBIN 31 PG (26.0-33.0); MEAN CORPUSCULAR HGB CONC 33 g/dl (31.0-36.0); MEAN CORPUSCULAR VOLUME 94 fL (82-100); MONOCYTES # (AUTO) 0.4 /CMM (0.1-1.30); MONOCYTES % (AUTO) 13.8 % (2.0-12.0); NEUTROPHILS % (AUTO) 66.5 % (43.0-81.0); PLATELET COUNT (AUTO) 56 /CMM (150-450); RED BLOOD CELL COUNT(AUTO) 3.02 MIL/uL (4.0-5.2)
[2016-08-30 07:34] LABS: CALCIUM, SERUM 9.3 mg/dL (8.5-10.1); CREATININE 6.3 mg/dL (0.6-1.3); PHOSPHORUS 4.9 mg/dL (2.5-4.9); POTASSIUM 3.5 mmol/L (3.5-5.1)
[2016-08-30 08:11] LABS: BAND % (MANUAL) 3 % (0.0-5.0); EOSINOPHILS % (MANUAL) 3 % (0-4); LYMPHOCYTES % (MANUAL) 15 % (16-48)
[2016-08-30 08:12] LABS: ANISOCYTOSIS 1+; PLATELET ESTIMATE DECREASED; POLYCHROMASIA 1+
[2016-08-30] MEDS: MIDODRINE HCL (5MG) 5 MG TABLET PO SCH ×3 (08:23→17:48)
[2016-08-30] MEDS: NYSTATIN (PYXIS) 500,000 UNIT/5 ML ORAL.SUSP PO SCH ×3 (08:23→17:00)
[2016-08-30] MEDS: PROPRANOLOL HCL 10 MG TABLET PO SCH (08:23)
[2016-08-30] MEDS: OCTREOTIDE 100 MCG/ML VIAL SQ SCH ×3 (08:23→17:47)
[2016-08-30] MEDS: BLOOD SUGAR DIAGNOSTIC 1 EACH STRIP VI SCH ×4 (08:24→21:17)
[2016-08-30] MEDS: PANTOPRAZOLE 40 MG TABLET.DR PO SCH (08:24)
[2016-08-30] MEDS: INSULIN REGULAR, HUMAN 100 UNIT/ML 3 ML VIAL SQ PRN ×2 (17:54→21:23)
[2016-08-30] MEDS ORDERED: ALBUTEROL FS 2.5 MG/3 ML VIAL.NEB ONE (21:54)
[2016-08-31] MEDS: LACTULOSE 10 G/15 ML UDC (PYXIS) PO SCH ×6 (00:39→21:14)
[2016-08-31] MEDS: BLOOD SUGAR DIAGNOSTIC 1 EACH STRIP VI SCH ×4 (06:58→21:35)
[2016-08-31 07:15] LABS: BASOPHILS % (AUTO) 0.5 % (0.0-2.0); DIFF TOTAL % 100 %; EOSINOPHILS # (AUTO) 0.1 /CMM (0.0-0.7); EOSINOPHILS % (AUTO) 2.3 % (0.0-6.0); HEMATOCRIT 27 % (33-45); HEMOGLOBIN 9.2 g/dL (11.5-14.8); LYMPHOCYTES # (AUTO) 0.7 /CMM (0.8-4.8); LYMPHOCYTES % (AUTO) 21.6 % (20.0-44.0); MEAN CORPUSCULAR HEMOGLOBIN 31 PG (26.0-33.0); MEAN CORPUSCULAR HGB CONC 34 g/dl (31.0-36.0); MEAN CORPUSCULAR VOLUME 94 fL (82-100); MONOCYTES # (AUTO) 0.6 /CMM (0.1-1.30); MONOCYTES % (AUTO) 17.2 % (2.0-12.0); NEUTROPHILS # (AUTO) 1.9 /CMM (1.8-8.9); NEUTROPHILS % (AUTO) 58.4 % (43.0-81.0); RED BLOOD CELL COUNT(AUTO) 2.92 MIL/uL (4.0-5.2); WHITE BLOOD COUNT (AUTO) 3.3 K/uL (4.3-11.0)
[2016-08-31 07:33] LABS: CALCIUM, SERUM 8.8 mg/dL (8.5-10.1); CREATININE 5.3 mg/dL (0.6-1.3); POTASSIUM 3.5 mmol/L (3.5-5.1)
[2016-08-31 08:00] VITALS: BP 86/46
[2016-08-31 08:16] LABS: PLATELET COUNT (AUTO) 35 /CMM (150-450)
[2016-08-31 08:20] LABS: ANISOCYTOSIS 1+; BAND % (MANUAL) 4 % (0.0-5.0); EOSINOPHILS % (MANUAL) 1 % (0-4); LYMPHOCYTES % (MANUAL) 20 % (16-48); PLATELET ESTIMATE DECREASED; POLYCHROMASIA 1+
[2016-08-31] MEDS: PROPRANOLOL HCL 10 MG TABLET PO SCH (09:24)
[2016-08-31] MEDS: MIDODRINE HCL (5MG) 5 MG TABLET PO SCH ×3 (09:24→16:20)
[2016-08-31] MEDS: PANTOPRAZOLE 40 MG TABLET.DR PO SCH (09:24)
[2016-08-31] MEDS: NYSTATIN (PYXIS) 500,000 UNIT/5 ML ORAL.SUSP PO SCH ×3 (09:24→16:19)
[2016-08-31] MEDS: OCTREOTIDE 100 MCG/ML VIAL SQ SCH ×3 (09:28→16:22)
[2016-08-31 16:00] VITALS: BP 100/58
[2016-08-31 16:06] VITALS: BP 100/58
[2016-08-31 20:00] VITALS: BP 105/53
[2016-08-31] MEDS: HYDROCODONE/APAP 5/325MG 1 EACH TABLET PO PRN (21:19)
[2016-08-31] MEDS: INSULIN REGULAR, HUMAN 100 UNIT/ML 3 ML VIAL SQ PRN (21:38)
[2016-09-01] VITALS: BP 99/49
[2016-09-01] MEDS: LACTULOSE 10 G/15 ML UDC (PYXIS) PO SCH ×6 (01:57→21:20)
[2016-09-01 04:00] VITALS: BP 99/49
[2016-09-01 07:19] LABS: BASOPHILS % (AUTO) 0.6 % (0.0-2.0); DIFF TOTAL % 100 %; EOSINOPHILS # (AUTO) 0.1 /CMM (0.0-0.7); EOSINOPHILS % (AUTO) 3.4 % (0.0-6.0); HEMATOCRIT 28 % (33-45); HEMOGLOBIN 9.5 g/dL (11.5-14.8); LYMPHOCYTES # (AUTO) 0.5 /CMM (0.8-4.8); LYMPHOCYTES % (AUTO) 18.7 % (20.0-44.0); MEAN CORPUSCULAR HEMOGLOBIN 32 PG (26.0-33.0); MEAN CORPUSCULAR HGB CONC 34 g/dl (31.0-36.0); MEAN CORPUSCULAR VOLUME 93 fL (82-100); MONOCYTES # (AUTO) 0.5 /CMM (0.1-1.30); NEUTROPHILS # (AUTO) 1.7 /CMM (1.8-8.9); NEUTROPHILS % (AUTO) 59.3 % (43.0-81.0); RED BLOOD CELL COUNT(AUTO) 3.01 MIL/uL (4.0-5.2); WHITE BLOOD COUNT (AUTO) 2.8 K/uL (4.3-11.0)
[2016-09-01] MEDS: BLOOD SUGAR DIAGNOSTIC 1 EACH STRIP VI SCH ×4 (07:31→21:57)
[2016-09-01 07:44] LABS: ALBUMIN 3.2 g/dL (3.4-5.0); BILIRUBIN,DIRECT 1.7 mg/dL (0.0-0.2); BILIRUBIN,TOTAL 4.1 mg/dL (0.2-1.0); CALCIUM, SERUM 9.1 mg/dL (8.5-10.1); CREATININE 6.5 mg/dL (0.6-1.3); INDIRECT BILIRUBIN 2.4 mg/dL (0.0-1.1); POTASSIUM 3.6 mmol/L (3.5-5.1); TOTAL PROTEIN, SERUM 5.9 g/dL (6.4-8.2)
[2016-09-01 07:47] LABS: PLATELET COUNT (AUTO) 28 /CMM (150-450)
[2016-09-01 08:00] VITALS: BP 92/50
[2016-09-01 08:05] LABS: BAND % (MANUAL) 1 % (0.0-5.0); EOSINOPHILS % (MANUAL) 3 % (0-4); LYMPHOCYTES % (MANUAL) 13 % (16-48); PLATELET ESTIMATE DECREASED
[2016-09-01 08:06] LABS: ANISOCYTOSIS 1+
[2016-09-01 08:07] VITALS: BP 92/50
[2016-09-01] MEDS: OCTREOTIDE 100 MCG/ML VIAL SQ SCH ×3 (08:33→16:51)
[2016-09-01] MEDS: PANTOPRAZOLE 40 MG TABLET.DR PO SCH (08:33)
[2016-09-01] MEDS: NYSTATIN (PYXIS) 500,000 UNIT/5 ML ORAL.SUSP PO SCH ×3 (08:33→16:51)
[2016-09-01] MEDS: PROPRANOLOL HCL 10 MG TABLET PO SCH (08:36)
[2016-09-01] MEDS: MIDODRINE HCL (5MG) 5 MG TABLET PO SCH ×3 (08:36→16:52)
[2016-09-01] MEDS ORDERED: SECONDARY IV SET 1 EA INFUS.SET MC ONE (13:08)
[2016-09-01] MEDS: ALBUMIN 25% 25 GM in PREMIX 1 EA IV PRN ×2 (13:30→13:43)
[2016-09-01 20:00] VITALS: BP 91/43
[2016-09-01] MEDS: INSULIN REGULAR, HUMAN 100 UNIT/ML 3 ML VIAL SQ PRN (22:21)
[2016-09-02] MEDS: LACTULOSE 10 G/15 ML UDC (PYXIS) PO SCH ×6 (01:00→20:57)
[2016-09-02 04:24] VITALS: BP 90/35
[2016-09-02] MEDS: PANTOPRAZOLE 40 MG TABLET.DR PO SCH (06:39)
[2016-09-02 06:40] LABS: BASOPHILS % (AUTO) 0.3 % (0.0-2.0); DIFF TOTAL % 100 %; EOSINOPHILS # (AUTO) 0.1 /CMM (0.0-0.7); HEMATOCRIT 27 % (33-45); HEMOGLOBIN 8.9 g/dL (11.5-14.8); LYMPHOCYTES # (AUTO) 0.5 /CMM (0.8-4.8); LYMPHOCYTES % (AUTO) 21.1 % (20.0-44.0); MEAN CORPUSCULAR HEMOGLOBIN 31 PG (26.0-33.0); MEAN CORPUSCULAR HGB CONC 33 g/dl (31.0-36.0); MEAN CORPUSCULAR VOLUME 94 fL (82-100); MONOCYTES # (AUTO) 0.4 /CMM (0.1-1.30); MONOCYTES % (AUTO) 18.8 % (2.0-12.0); NEUTROPHILS # (AUTO) 1.3 /CMM (1.8-8.9); NEUTROPHILS % (AUTO) 56.8 % (43.0-81.0); RED BLOOD CELL COUNT(AUTO) 2.84 MIL/uL (4.0-5.2); WHITE BLOOD COUNT (AUTO) 2.3 K/uL (4.3-11.0)
[2016-09-02] MEDS: BLOOD SUGAR DIAGNOSTIC 1 EACH STRIP VI SCH ×4 (06:40→21:39)
[2016-09-02] MEDS ORDERED: LIDOCAINE HCL/PF 1% 30 ML SDV ONE (06:48)
[2016-09-02] MEDS ORDERED: HEPARIN SODIUM, PORCINE 1,000 UNIT/ML VIAL ONE (06:48)
[2016-09-02 06:50] LABS: CALCIUM, SERUM 9.1 mg/dL (8.5-10.1); CREATININE 5.5 mg/dL (0.6-1.3); POTASSIUM 3.7 mmol/L (3.5-5.1)
[2016-09-02 06:55] LABS: PLATELET COUNT (AUTO) 17 /CMM (150-450)
[2016-09-02 07:03] LABS: INR 1.96 (0.87-1.13); PROTHROMBIN TIME 21.3 SECS (9.5-12.7)
[2016-09-02] MEDS ORDERED: BLOOD IV SET 1 EA INFUS.SET MC ONE (07:18)
[2016-09-02] MEDS ORDERED: FENTANYL PF 100MCG/2ML AMPUL ONE (07:32)
[2016-09-02] MEDS ORDERED: CLINDAMYCIN 900 MG/6 ML VIAL ONE (07:36)
[2016-09-02 08:49] VITALS: BP 85/55
[2016-09-02 09:00] VITALS: BP 90/54
[2016-09-02] MEDS: PROPRANOLOL HCL 10 MG TABLET PO SCH (09:00)
[2016-09-02] MEDS: NYSTATIN (PYXIS) 500,000 UNIT/5 ML ORAL.SUSP PO SCH ×3 (09:52→17:36)
[2016-09-02] MEDS: MIDODRINE HCL (5MG) 5 MG TABLET PO SCH ×3 (09:53→17:35)
[2016-09-02] MEDS: OCTREOTIDE 100 MCG/ML VIAL SQ SCH ×3 (09:59→17:36)
[2016-09-02 10:12] LABS: EOSINOPHILS % (MANUAL) 6 % (0-4); LYMPHOCYTES % (MANUAL) 28 % (16-48)
[2016-09-02 10:17] LABS: PLATELET ESTIMATE DECRE
[2016-09-02 10:18] LABS: ANISOCYTOSIS 1+
[2016-09-02 12:11] LABS: *HCV QUANT HCV Not Detected IU/mL (.)
[2016-09-02] MEDS: INSULIN REGULAR, HUMAN 100 UNIT/ML 3 ML VIAL SQ PRN (12:19)
[2016-09-02] MEDS: ACETAMINOPHEN 325 MG TABLET PO PRN (15:25)
[2016-09-02 15:43] LABS: BASOPHILS % (AUTO) 0.2 % (0.0-2.0); DIFF TOTAL % 100 %; EOSINOPHILS # (AUTO) 0.1 /CMM (0.0-0.7); EOSINOPHILS % (AUTO) 2.8 % (0.0-6.0); HEMATOCRIT 25 % (33-45); HEMOGLOBIN 8.5 g/dL (11.5-14.8); LYMPHOCYTES # (AUTO) 0.4 /CMM (0.8-4.8); LYMPHOCYTES % (AUTO) 16.2 % (20.0-44.0); MEAN CORPUSCULAR HEMOGLOBIN 32 PG (26.0-33.0); MEAN CORPUSCULAR HGB CONC 34 g/dl (31.0-36.0); MEAN CORPUSCULAR VOLUME 94 fL (82-100); MONOCYTES # (AUTO) 0.5 /CMM (0.1-1.30); MONOCYTES % (AUTO) 19.6 % (2.0-12.0); NEUTROPHILS # (AUTO) 1.5 /CMM (1.8-8.9); NEUTROPHILS % (AUTO) 61.2 % (43.0-81.0); RED BLOOD CELL COUNT(AUTO) 2.69 MIL/uL (4.0-5.2); WHITE BLOOD COUNT (AUTO) 2.4 K/uL (4.3-11.0)
[2016-09-02 16:00] VITALS: BP_SYST 109; BP_SYST 95; BP_DIAS 34; BP_DIAS 79
[2016-09-02 16:14] LABS: PLATELET COUNT (AUTO) 25 /CMM (150-450)
[2016-09-02 17:11] LABS: EOSINOPHILS % (MANUAL) 4 % (0-4); LYMPHOCYTES % (MANUAL) 14 % (16-48); PLATELET ESTIMATE DECREASED
[2016-09-02 17:12] LABS: ANISOCYTOSIS 2+
[2016-09-02 20:00] VITALS: BP 94/49
[2016-09-03] MEDS: LACTULOSE 10 G/15 ML UDC (PYXIS) PO SCH ×6 (01:56→21:18)
[2016-09-03 04:00] VITALS: BP 90/45
[2016-09-03] MEDS: BLOOD SUGAR DIAGNOSTIC 1 EACH STRIP VI SCH ×4 (06:27→21:23)
[2016-09-03] MEDS: HYDROCODONE/APAP 5/325MG 1 EACH TABLET PO PRN (06:28)
[2016-09-03] MEDS: PANTOPRAZOLE 40 MG TABLET.DR PO SCH (07:43)
[2016-09-03 08:00] VITALS: BP 81/40
[2016-09-03] MEDS: PROPRANOLOL HCL 10 MG TABLET PO SCH (09:00)
[2016-09-03] MEDS: NYSTATIN (PYXIS) 500,000 UNIT/5 ML ORAL.SUSP PO SCH ×3 (09:20→17:12)
[2016-09-03] MEDS: MIDODRINE HCL (5MG) 5 MG TABLET PO SCH ×3 (09:23→17:13)
[2016-09-03] MEDS: OCTREOTIDE 100 MCG/ML VIAL SQ SCH ×3 (11:44→17:13)
[2016-09-03] MEDS ORDERED: SECONDARY IV SET 1 EA INFUS.SET MC ONE (13:12)
[2016-09-03] MEDS: ALBUMIN 25% 25 GM in PREMIX 1 EA IV PRN ×2 (13:23→15:06)
[2016-09-03] MEDS: ACETAMINOPHEN 325 MG TABLET PO PRN (15:36)
[2016-09-03 16:00] VITALS: BP 85/55
[2016-09-03 20:00] VITALS: BP 88/38
[2016-09-03] MEDS: INSULIN REGULAR, HUMAN 100 UNIT/ML 3 ML VIAL SQ PRN (21:27)
[2016-09-04] VITALS (14 sets, daily range): BP systolic 84–111; BP diastolic 34–54
[2016-09-04] MEDS: LACTULOSE 10 G/15 ML UDC (PYXIS) PO SCH ×6 (00:57→22:05)
[2016-09-04] MEDS: BLOOD SUGAR DIAGNOSTIC 1 EACH STRIP VI SCH ×4 (06:39→22:05)
[2016-09-04] MEDS: PANTOPRAZOLE 40 MG TABLET.DR PO SCH (06:39)
[2016-09-04] MEDS: ACETAMINOPHEN 325 MG TABLET PO PRN (06:39)
[2016-09-04] MEDS: MIDODRINE HCL (5MG) 5 MG TABLET PO SCH ×3 (08:21→18:01)
[2016-09-04] MEDS: PROPRANOLOL HCL 10 MG TABLET PO SCH (08:21)
[2016-09-04] MEDS: OCTREOTIDE 100 MCG/ML VIAL SQ SCH ×3 (08:21→18:01)
[2016-09-04] MEDS: NYSTATIN (PYXIS) 500,000 UNIT/5 ML ORAL.SUSP PO SCH ×2 (08:21→12:20)
[2016-09-04 14:22] LABS: BASOPHILS % (AUTO) 0.7 % (0.0-2.0); EOSINOPHILS # (AUTO) 0.1 /CMM (0.0-0.7); EOSINOPHILS % (AUTO) 2.7 % (0.0-6.0); HEMATOCRIT 25 % (33-45); HEMOGLOBIN 8.2 g/dL (11.5-14.8); LYMPHOCYTES # (AUTO) 0.5 /CMM (0.8-4.8); LYMPHOCYTES % (AUTO) 21.8 % (20.0-44.0); MEAN CORPUSCULAR HEMOGLOBIN 31 PG (26.0-33.0); MEAN CORPUSCULAR HGB CONC 33 g/dl (31.0-36.0); MEAN CORPUSCULAR VOLUME 94 fL (82-100); MONOCYTES # (AUTO) 0.5 /CMM (0.1-1.30); MONOCYTES % (AUTO) 19.1 % (2.0-12.0); NEUTROPHILS # (AUTO) 1.3 /CMM (1.8-8.9); NEUTROPHILS % (AUTO) 55.7 % (43.0-81.0); RED BLOOD CELL COUNT(AUTO) 2.65 MIL/uL (4.0-5.2); WHITE BLOOD COUNT (AUTO) 2.4 K/uL (4.3-11.0)
[2016-09-04 15:40] LABS: DIFF TOTAL % 100 %
[2016-09-04 15:41] LABS: PLATELET COUNT (AUTO) 14 /CMM (150-450)
[2016-09-04 15:45] LABS: EOSINOPHILS % (MANUAL) 2 % (0-4); LYMPHOCYTES % (MANUAL) 18 % (16-48); PLATELET ESTIMATE DECREASED
[2016-09-04 15:46] LABS: ANISOCYTOSIS 1+
[2016-09-04] MEDS ORDERED: PHYTONADIONE 5 MG TABLET PO ONE (17:30)
[2016-09-04 18:20] LABS: INR 1.9 (0.87-1.13); PROTHROMBIN TIME 20.7 SECS (9.5-12.7)
[2016-09-04] MEDS ORDERED: PLATELET IV SET 1 EA INFUS.SET MC ONE (20:57)
[2016-09-04] MEDS: INSULIN REGULAR, HUMAN 100 UNIT/ML 3 ML VIAL SQ PRN (22:06)
[2016-09-04] MEDS ORDERED: IV NS 0.9% 250 ML IV ONE (22:17)
[2016-09-04] MEDS ORDERED: BLOOD IV SET 1 EA INFUS.SET MC ONE (22:18)
[2016-09-05] VITALS (17 sets, daily range): BP systolic 93–110; BP diastolic 43–75
[2016-09-05] MEDS ORDERED: BLOOD IV SET 1 EA INFUS.SET MC ONE (01:29)
[2016-09-05] MEDS: LACTULOSE 10 G/15 ML UDC (PYXIS) PO SCH ×6 (01:30→21:00)
[2016-09-05] MEDS: BLOOD SUGAR DIAGNOSTIC 1 EACH STRIP VI SCH ×4 (06:17→21:48)
[2016-09-05] MEDS: INSULIN REGULAR, HUMAN 100 UNIT/ML 3 ML VIAL SQ PRN ×2 (06:17→18:15)
[2016-09-05 07:23] LABS: BASOPHILS % (AUTO) 0.5 % (0.0-2.0); DIFF TOTAL % 100 %; EOSINOPHILS # (AUTO) 0.1 /CMM (0.0-0.7); EOSINOPHILS % (AUTO) 3.5 % (0.0-6.0); HEMATOCRIT 24 % (33-45); HEMOGLOBIN 7.9 g/dL (11.5-14.8); LYMPHOCYTES # (AUTO) 0.4 /CMM (0.8-4.8); LYMPHOCYTES % (AUTO) 19.7 % (20.0-44.0); MEAN CORPUSCULAR HEMOGLOBIN 32 PG (26.0-33.0); MEAN CORPUSCULAR HGB CONC 34 g/dl (31.0-36.0); MEAN CORPUSCULAR VOLUME 94 fL (82-100); MONOCYTES # (AUTO) 0.3 /CMM (0.1-1.30); MONOCYTES % (AUTO) 15.9 % (2.0-12.0); NEUTROPHILS # (AUTO) 1.3 /CMM (1.8-8.9); NEUTROPHILS % (AUTO) 60.4 % (43.0-81.0); RED BLOOD CELL COUNT(AUTO) 2.51 MIL/uL (4.0-5.2); WHITE BLOOD COUNT (AUTO) 2.2 K/uL (4.3-11.0)
[2016-09-05 07:36] LABS: INR 1.32 (0.87-1.13); PROTHROMBIN TIME 14.3 SECS (9.5-12.7)
[2016-09-05 07:37] LABS: ALBUMIN 3.9 g/dL (3.4-5.0); BILIRUBIN,TOTAL 4.3 mg/dL (0.2-1.0); CALCIUM, SERUM 9.1 mg/dL (8.5-10.1); CREATININE 6.3 mg/dL (0.6-1.3); POTASSIUM 4.2 mmol/L (3.5-5.1); TOTAL PROTEIN, SERUM 6.6 g/dL (6.4-8.2)
[2016-09-05 07:45] LABS: PLATELET COUNT (AUTO) 21 /CMM (150-450)
[2016-09-05] MEDS: PROPRANOLOL HCL 10 MG TABLET PO SCH (09:00)
[2016-09-05] MEDS: PANTOPRAZOLE 40 MG TABLET.DR PO SCH (09:02)
[2016-09-05] MEDS: MIDODRINE HCL (5MG) 5 MG TABLET PO SCH ×3 (09:03→16:55)
[2016-09-05] MEDS: OCTREOTIDE 100 MCG/ML VIAL SQ SCH ×3 (09:04→16:55)
[2016-09-05] MEDS ORDERED: SECONDARY IV SET 1 EA INFUS.SET MC ONE (09:54)
[2016-09-05 10:01] LABS: EOSINOPHILS % (MANUAL) 3 % (0-4); HYPOCHROMASIA 2+; LYMPHOCYTES % (MANUAL) 21 % (16-48); PLATELET ESTIMATE DECREASED
[2016-09-05] MEDS: ALBUMIN 25% 25 GM in PREMIX 1 EA IV PRN (11:14)
[2016-09-06] VITALS (8 sets, daily range): BP systolic 99–122; BP diastolic 38–70
[2016-09-06] MEDS: LACTULOSE 10 G/15 ML UDC (PYXIS) PO SCH ×6 (01:00→20:30)
[2016-09-06] MEDS: BLOOD SUGAR DIAGNOSTIC 1 EACH STRIP VI SCH ×4 (06:48→22:00)
[2016-09-06] MEDS: PANTOPRAZOLE 40 MG TABLET.DR PO SCH (07:24)
[2016-09-06 07:58] LABS: INR 1.7 (0.87-1.13); PROTHROMBIN TIME 17.8 SECS (9.5-12.7)
[2016-09-06] MEDS: PROPRANOLOL HCL 10 MG TABLET PO SCH (08:16)
[2016-09-06] MEDS: MIDODRINE HCL (5MG) 5 MG TABLET PO SCH ×3 (08:17→16:17)
[2016-09-06] MEDS: OCTREOTIDE 100 MCG/ML VIAL SQ SCH ×3 (08:22→16:14)
[2016-09-06] MEDS: INSULIN REGULAR, HUMAN 100 UNIT/ML 3 ML VIAL SQ PRN (12:02)
[2016-09-06 12:33] LABS: BASOPHILS % (AUTO) 0.5 % (0.0-2.0); DIFF TOTAL % 100 %; EOSINOPHILS % (AUTO) 1.8 % (0.0-6.0); HEMATOCRIT 24 % (33-45); HEMOGLOBIN 7.8 g/dL (11.5-14.8); LYMPHOCYTES # (AUTO) 0.5 /CMM (0.8-4.8); LYMPHOCYTES % (AUTO) 28.1 % (20.0-44.0); MEAN CORPUSCULAR HEMOGLOBIN 32 PG (26.0-33.0); MEAN CORPUSCULAR HGB CONC 33 g/dl (31.0-36.0); MEAN CORPUSCULAR VOLUME 95 fL (82-100); MONOCYTES # (AUTO) 0.4 /CMM (0.1-1.30); MONOCYTES % (AUTO) 18.9 % (2.0-12.0); NEUTROPHILS % (AUTO) 50.7 % (43.0-81.0); RED BLOOD CELL COUNT(AUTO) 2.48 MIL/uL (4.0-5.2)
[2016-09-06 12:36] LABS: WHITE BLOOD COUNT (AUTO) 1.9 K/uL (4.3-11.0)
[2016-09-06 12:37] LABS: PLATELET COUNT (AUTO) 15 /CMM (150-450)
[2016-09-06 13:01] LABS: EOSINOPHILS % (MANUAL) 2 % (0-4); LYMPHOCYTES % (MANUAL) 19 % (16-48)
[2016-09-06 13:02] LABS: ANISOCYTOSIS 1+; PLATELET ESTIMATE DECREASED
[2016-09-06 13:23] LABS: ALBUMIN 4.2 g/dL (3.4-5.0); BILIRUBIN,TOTAL 5.3 mg/dL (0.2-1.0); CALCIUM, SERUM 9.3 mg/dL (8.5-10.1); CREATININE 5.9 mg/dL (0.6-1.3); POTASSIUM 3.7 mmol/L (3.5-5.1); TOTAL PROTEIN, SERUM 6.6 g/dL (6.4-8.2)
[2016-09-06] MEDS ORDERED: PLATELET IV SET 1 EA INFUS.SET MC ONE ×2 (14:42→21:00)
[2016-09-06] MEDS ORDERED: BLOOD IV SET 1 EA INFUS.SET MC ONE (14:45)
[2016-09-06] MEDS ORDERED: IV NS 0.9% 250 ML IV ONE (15:00)
[2016-09-06] MEDS: HYDROCODONE/APAP 5/325MG 1 EACH TABLET PO PRN (20:30)
[2016-09-07] MEDS: LACTULOSE 10 G/15 ML UDC (PYXIS) PO SCH ×6 (01:00→20:45)
[2016-09-07 04:00] VITALS: BP 104/47
[2016-09-07 08:00] VITALS: BP 97/62
[2016-09-07] MEDS: BLOOD SUGAR DIAGNOSTIC 1 EACH STRIP VI SCH ×4 (08:17→21:13)
[2016-09-07] MEDS: PROPRANOLOL HCL 10 MG TABLET PO SCH (08:49)
[2016-09-07] MEDS: OCTREOTIDE 100 MCG/ML VIAL SQ SCH ×3 (08:50→16:43)
[2016-09-07] MEDS: PANTOPRAZOLE 40 MG TABLET.DR PO SCH (08:50)
[2016-09-07] MEDS: MIDODRINE HCL (5MG) 5 MG TABLET PO SCH ×3 (08:50→16:43)
[2016-09-07 13:31] LABS: BASOPHILS % (AUTO) 0.3 % (0.0-2.0); DIFF TOTAL % 100 %; EOSINOPHILS # (AUTO) 0.1 /CMM (0.0-0.7); EOSINOPHILS % (AUTO) 3.1 % (0.0-6.0); HEMATOCRIT 24 % (33-45); LYMPHOCYTES # (AUTO) 0.4 /CMM (0.8-4.8); LYMPHOCYTES % (AUTO) 23.5 % (20.0-44.0); MEAN CORPUSCULAR HEMOGLOBIN 31 PG (26.0-33.0); MEAN CORPUSCULAR HGB CONC 33 g/dl (31.0-36.0); MEAN CORPUSCULAR VOLUME 94 fL (82-100); MONOCYTES # (AUTO) 0.4 /CMM (0.1-1.30); MONOCYTES % (AUTO) 21.3 % (2.0-12.0); NEUTROPHILS # (AUTO) 0.9 /CMM (1.8-8.9); NEUTROPHILS % (AUTO) 51.8 % (43.0-81.0); RED BLOOD CELL COUNT(AUTO) 2.55 MIL/uL (4.0-5.2)
[2016-09-07 13:43] LABS: PLATELET COUNT (AUTO) 22 /CMM (150-450); WHITE BLOOD COUNT (AUTO) 1.8 K/uL (4.3-11.0)
[2016-09-07 13:48] LABS: ALBUMIN 3.9 g/dL (3.4-5.0); BILIRUBIN,TOTAL 4.9 mg/dL (0.2-1.0); CALCIUM, SERUM 9.2 mg/dL (8.5-10.1); POTASSIUM 3.6 mmol/L (3.5-5.1); TOTAL PROTEIN, SERUM 6.9 g/dL (6.4-8.2)
[2016-09-07 14:24] LABS: ANISOCYTOSIS 2+; EOSINOPHILS % (MANUAL) 3 % (0-4); LYMPHOCYTES % (MANUAL) 13 % (16-48); MYELOCYTES % 2 % (0-0); PLATELET ESTIMATE DECREASED; PROMYELOCYTES % 3 % (0-0)
[2016-09-07] MEDS ORDERED: SECONDARY IV SET 1 EA INFUS.SET MC ONE (15:44)
[2016-09-07] MEDS: ALBUMIN 25% 25 GM in PREMIX 1 EA IV PRN (15:49)
[2016-09-07 16:00] VITALS: BP 114/61
[2016-09-07 20:00] VITALS: BP_SYST 118; BP_SYST 95; BP_DIAS 37; BP_DIAS 77
[2016-09-07] MEDS: HYDROCODONE/APAP 5/325MG 1 EACH TABLET PO PRN (20:45)
[2016-09-07] MEDS: INSULIN REGULAR, HUMAN 100 UNIT/ML 3 ML VIAL SQ PRN (21:15)
[2016-09-08] MEDS: LACTULOSE 10 G/15 ML UDC (PYXIS) PO SCH ×6 (01:00→21:00)
[2016-09-08 04:00] VITALS: BP 100/40
[2016-09-08 04:03] VITALS: BP 100/40
[2016-09-08 06:51] LABS: BASOPHILS % (AUTO) 0.3 % (0.0-2.0); DIFF TOTAL % 100 %; EOSINOPHILS % (AUTO) 1.9 % (0.0-6.0); HEMATOCRIT 22 % (33-45); HEMOGLOBIN 7.3 g/dL (11.5-14.8); LYMPHOCYTES # (AUTO) 0.4 /CMM (0.8-4.8); LYMPHOCYTES % (AUTO) 18.8 % (20.0-44.0); MEAN CORPUSCULAR HEMOGLOBIN 32 PG (26.0-33.0); MEAN CORPUSCULAR HGB CONC 33 g/dl (31.0-36.0); MEAN CORPUSCULAR VOLUME 95 fL (82-100); MONOCYTES # (AUTO) 0.4 /CMM (0.1-1.30); MONOCYTES % (AUTO) 17.6 % (2.0-12.0); NEUTROPHILS # (AUTO) 1.2 /CMM (1.8-8.9); NEUTROPHILS % (AUTO) 61.4 % (43.0-81.0); RED BLOOD CELL COUNT(AUTO) 2.29 MIL/uL (4.0-5.2)
[2016-09-08 07:06] LABS: CALCIUM, SERUM 9.2 mg/dL (8.5-10.1); CREATININE 5.5 mg/dL (0.6-1.3); POTASSIUM 4.1 mmol/L (3.5-5.1)
[2016-09-08 07:42] LABS: PLATELET COUNT (AUTO) 19 /CMM (150-450)
[2016-09-08 07:57] LABS: BAND % (MANUAL) 4 % (0.0-5.0); EOSINOPHILS % (MANUAL) 1 % (0-4); LYMPHOCYTES % (MANUAL) 19 % (16-48)
[2016-09-08 07:58] LABS: ANISOCYTOSIS 1+; PLATELET ESTIMATE DECREASED
[2016-09-08] MEDS: PANTOPRAZOLE 40 MG TABLET.DR PO SCH (07:58)
[2016-09-08 08:00] VITALS: BP 99/43
[2016-09-08] MEDS: BLOOD SUGAR DIAGNOSTIC 1 EACH STRIP VI SCH ×4 (08:00→21:58)
[2016-09-08] MEDS: PROPRANOLOL HCL 10 MG TABLET PO SCH (08:02)
[2016-09-08] MEDS: MIDODRINE HCL (5MG) 5 MG TABLET PO SCH ×3 (08:02→16:44)
[2016-09-08] MEDS: OCTREOTIDE 100 MCG/ML VIAL SQ SCH ×3 (08:02→16:38)
[2016-09-08 12:40] LABS: INR 1.59 (0.87-1.13); PARTIAL THROMBOPLASTIN TIME 43 SEC (23-34); PROTHROMBIN TIME 17.3 SECS (9.5-12.7)
[2016-09-08 16:00] VITALS: BP 107/51
[2016-09-08] MEDS: ACETAMINOPHEN 325 MG TABLET PO PRN (17:52)
[2016-09-08 20:00] VITALS: BP 110/54
[2016-09-08] MEDS ORDERED: IV SET PRIMARY PUMP SET 1 EA INFUS.SET MC ONE (23:52)
[2016-09-09] VITALS (9 sets, daily range): BP systolic 75–160; BP diastolic 40–94
[2016-09-09] MEDS ORDERED: PLATELET IV SET 1 EA INFUS.SET MC ONE ×2 (00:50→23:42)
[2016-09-09] MEDS: LACTULOSE 10 G/15 ML UDC (PYXIS) PO SCH ×6 (01:00→21:02)
[2016-09-09] MEDS: BLOOD SUGAR DIAGNOSTIC 1 EACH STRIP VI SCH ×4 (06:30→22:12)
[2016-09-09 06:52] LABS: BASOPHILS % (AUTO) 0.6 % (0.0-2.0); DIFF TOTAL % 100 %; EOSINOPHILS # (AUTO) 0.1 /CMM (0.0-0.7); EOSINOPHILS % (AUTO) 3.1 % (0.0-6.0); HEMATOCRIT 23 % (33-45); HEMOGLOBIN 7.9 g/dL (11.5-14.8); LYMPHOCYTES # (AUTO) 0.4 /CMM (0.8-4.8); LYMPHOCYTES % (AUTO) 23.3 % (20.0-44.0); MEAN CORPUSCULAR HEMOGLOBIN 32 PG (26.0-33.0); MEAN CORPUSCULAR HGB CONC 34 g/dl (31.0-36.0); MEAN CORPUSCULAR VOLUME 95 fL (82-100); MONOCYTES # (AUTO) 0.3 /CMM (0.1-1.30); MONOCYTES % (AUTO) 19.1 % (2.0-12.0); NEUTROPHILS # (AUTO) 0.9 /CMM (1.8-8.9); NEUTROPHILS % (AUTO) 53.9 % (43.0-81.0); RED BLOOD CELL COUNT(AUTO) 2.45 MIL/uL (4.0-5.2)
[2016-09-09 07:15] LABS: WHITE BLOOD COUNT (AUTO) 1.8 K/uL (4.3-11.0)
[2016-09-09 07:16] LABS: PLATELET COUNT (AUTO) 23 /CMM (150-450)
[2016-09-09 07:34] LABS: CALCIUM, SERUM 9.6 mg/dL (8.5-10.1); CREATININE 6.5 mg/dL (0.6-1.3); POTASSIUM 4.1 mmol/L (3.5-5.1)
[2016-09-09] MEDS: OCTREOTIDE 100 MCG/ML VIAL SQ SCH ×3 (08:30→16:49)
[2016-09-09] MEDS: PANTOPRAZOLE 40 MG TABLET.DR PO SCH (08:30)
[2016-09-09] MEDS: MIDODRINE HCL (5MG) 5 MG TABLET PO SCH ×3 (08:30→16:50)
[2016-09-09] MEDS: PROPRANOLOL HCL 10 MG TABLET PO SCH (08:31)
[2016-09-09 11:10] LABS: EOSINOPHILS % (MANUAL) 4 % (0-4); LYMPHOCYTES % (MANUAL) 24 % (16-48)
[2016-09-09 11:11] LABS: ANISOCYTOSIS 2+; HYPOCHROMASIA 1+; OVALOCYTES 1+; PLATELET ESTIMATE DECREASED
[2016-09-09] MEDS ORDERED: BLOOD IV SET 1 EA INFUS.SET MC ONE ×2 (12:19→23:41)
[2016-09-09] MEDS ORDERED: IV NS 0.9% 250 ML IV ONE (12:19)
[2016-09-09] MEDS: ACETAMINOPHEN 325 MG TABLET PO PRN (12:40)
[2016-09-09] MEDS: INSULIN REGULAR, HUMAN 100 UNIT/ML 3 ML VIAL SQ PRN (16:56)
[2016-09-09] MEDS ORDERED: ALBUMIN 25% 12.5 GM/50 ML BOTTLE IV ONE (20:00)
[2016-09-09] MEDS ORDERED: ALBUMIN 25% 12.5 GM in PREMIX 1 EA IV ONE (21:00)
[2016-09-09] MEDS ORDERED: IV SET PRIMARY 1 EA INFUS.SET MC ONE (21:32)
[2016-09-10] VITALS (13 sets, daily range): BP systolic 93–136; BP diastolic 40–73
[2016-09-10] MEDS: LACTULOSE 10 G/15 ML UDC (PYXIS) PO SCH ×6 (01:47→20:53)
[2016-09-10] MEDS: BLOOD SUGAR DIAGNOSTIC 1 EACH STRIP VI SCH ×4 (05:52→21:07)
[2016-09-10] MEDS: HYDROCODONE/APAP 5/325MG 1 EACH TABLET PO PRN (05:59)
[2016-09-10 07:11] LABS: BASOPHILS % (AUTO) 0.4 % (0.0-2.0); DIFF TOTAL % 100 %; EOSINOPHILS # (AUTO) 0.1 /CMM (0.0-0.7); EOSINOPHILS % (AUTO) 2.8 % (0.0-6.0); HEMATOCRIT 26 % (33-45); HEMOGLOBIN 9.1 g/dL (11.5-14.8); LYMPHOCYTES # (AUTO) 0.5 /CMM (0.8-4.8); LYMPHOCYTES % (AUTO) 21.6 % (20.0-44.0); MEAN CORPUSCULAR HEMOGLOBIN 32 PG (26.0-33.0); MEAN CORPUSCULAR HGB CONC 35 g/dl (31.0-36.0); MEAN CORPUSCULAR VOLUME 93 fL (82-100); MONOCYTES # (AUTO) 0.3 /CMM (0.1-1.30); MONOCYTES % (AUTO) 16.4 % (2.0-12.0); NEUTROPHILS # (AUTO) 1.2 /CMM (1.8-8.9); NEUTROPHILS % (AUTO) 58.8 % (43.0-81.0); RED BLOOD CELL COUNT(AUTO) 2.82 MIL/uL (4.0-5.2); WHITE BLOOD COUNT (AUTO) 2.1 K/uL (4.3-11.0)
[2016-09-10 07:53] LABS: CALCIUM, SERUM 9.5 mg/dL (8.5-10.1)
[2016-09-10] MEDS ORDERED: ALBUMIN 25% 12.5 GM/50 ML BOTTLE IV ONE (08:00)
[2016-09-10 08:02] LABS: PLATELET COUNT (AUTO) 34 /CMM (150-450)
[2016-09-10] MEDS: PROPRANOLOL HCL 10 MG TABLET PO SCH (08:39)
[2016-09-10] MEDS: MIDODRINE HCL (5MG) 5 MG TABLET PO SCH ×3 (09:34→17:44)
[2016-09-10] MEDS: OCTREOTIDE 100 MCG/ML VIAL SQ SCH ×3 (09:35→17:44)
[2016-09-10] MEDS: PANTOPRAZOLE 40 MG TABLET.DR PO SCH (09:35)
[2016-09-10 10:05] LABS: BAND % (MANUAL) 3 % (0.0-5.0); EOSINOPHILS % (MANUAL) 3 % (0-4); LYMPHOCYTES % (MANUAL) 25 % (16-48); MYELOCYTES % 1 % (0-0)
[2016-09-10 10:06] LABS: ANISOCYTOSIS 2+; PLATELET ESTIMATE DECREASED
[2016-09-10] MEDS ORDERED: BLOOD IV SET 1 EA INFUS.SET MC ONE (13:49)
[2016-09-10] MEDS ORDERED: IV NS 0.9% 250 ML IV ONE (13:50)
[2016-09-10] MEDS: INSULIN REGULAR, HUMAN 100 UNIT/ML 3 ML VIAL SQ PRN (21:08)
[2016-09-10] MEDS: ACETAMINOPHEN 325 MG TABLET PO PRN (21:12)
[2016-09-10] MEDS: ONDANSETRON HCL/PF 4 MG/2 ML VIAL IVP PRN (21:12)
[2016-09-11] VITALS (8 sets, daily range): BP systolic 92–122; BP diastolic 53–70
[2016-09-11] MEDS: LACTULOSE 10 G/15 ML UDC (PYXIS) PO SCH ×6 (00:02→21:18)
[2016-09-11] MEDS ORDERED: PLATELET IV SET 1 EA INFUS.SET MC ONE (00:50)
[2016-09-11] MEDS: BLOOD SUGAR DIAGNOSTIC 1 EACH STRIP VI SCH ×4 (06:26→21:21)
[2016-09-11] MEDS: INSULIN REGULAR, HUMAN 100 UNIT/ML 3 ML VIAL SQ PRN ×2 (06:27→21:25)
[2016-09-11 07:26] LABS: BASOPHILS % (AUTO) 0.6 % (0.0-2.0); DIFF TOTAL % 100 %; EOSINOPHILS % (AUTO) 1.9 % (0.0-6.0); HEMATOCRIT 25 % (33-45); HEMOGLOBIN 8.6 g/dL (11.5-14.8); LYMPHOCYTES # (AUTO) 0.4 /CMM (0.8-4.8); MEAN CORPUSCULAR HEMOGLOBIN 32 PG (26.0-33.0); MEAN CORPUSCULAR HGB CONC 34 g/dl (31.0-36.0); MEAN CORPUSCULAR VOLUME 93 fL (82-100); MONOCYTES # (AUTO) 0.3 /CMM (0.1-1.30); MONOCYTES % (AUTO) 16.7 % (2.0-12.0); NEUTROPHILS # (AUTO) 1.2 /CMM (1.8-8.9); NEUTROPHILS % (AUTO) 61.8 % (43.0-81.0); PLATELET COUNT (AUTO) 63 /CMM (150-450); RED BLOOD CELL COUNT(AUTO) 2.73 MIL/uL (4.0-5.2)
[2016-09-11 07:52] LABS: CALCIUM, SERUM 9.9 mg/dL (8.5-10.1); CREATININE 5.9 mg/dL (0.6-1.3)
[2016-09-11] MEDS: MIDODRINE HCL (5MG) 5 MG TABLET PO SCH ×3 (09:00→18:54)
[2016-09-11] MEDS: PROPRANOLOL HCL 10 MG TABLET PO SCH (09:00)
[2016-09-11 09:39] LABS: ANISOCYTOSIS 1+; EOSINOPHILS % (MANUAL) 1 % (0-4); LYMPHOCYTES % (MANUAL) 17 % (16-48); PLATELET ESTIMATE DECREASED
[2016-09-11] MEDS: ACETAMINOPHEN 325 MG TABLET PO PRN (09:46)
[2016-09-11] MEDS: OCTREOTIDE 100 MCG/ML VIAL SQ SCH ×3 (09:46→18:54)
[2016-09-11] MEDS: PANTOPRAZOLE 40 MG TABLET.DR PO SCH (09:46)
[2016-09-11] MEDS: ALBUMIN 25% 25 GM in PREMIX 1 EA IV PRN (18:53)
[2016-09-12] MEDS: LACTULOSE 10 G/15 ML UDC (PYXIS) PO SCH ×6 (02:30→21:42)
[2016-09-12 04:00] VITALS: BP 101/53
[2016-09-12] MEDS: BLOOD SUGAR DIAGNOSTIC 1 EACH STRIP VI SCH ×4 (06:30→21:51)
[2016-09-12] MEDS: PANTOPRAZOLE 40 MG TABLET.DR PO SCH (07:30)
[2016-09-12 07:43] LABS: BASOPHILS % (AUTO) 0.6 % (0.0-2.0); DIFF TOTAL % 100 %; EOSINOPHILS # (AUTO) 0.1 /CMM (0.0-0.7); HEMATOCRIT 26 % (33-45); LYMPHOCYTES # (AUTO) 0.4 /CMM (0.8-4.8); LYMPHOCYTES % (AUTO) 21.8 % (20.0-44.0); MEAN CORPUSCULAR HEMOGLOBIN 32 PG (26.0-33.0); MEAN CORPUSCULAR HGB CONC 34 g/dl (31.0-36.0); MEAN CORPUSCULAR VOLUME 94 fL (82-100); MONOCYTES # (AUTO) 0.3 /CMM (0.1-1.30); MONOCYTES % (AUTO) 16.3 % (2.0-12.0); NEUTROPHILS # (AUTO) 1.1 /CMM (1.8-8.9); NEUTROPHILS % (AUTO) 58.3 % (43.0-81.0); RED BLOOD CELL COUNT(AUTO) 2.79 MIL/uL (4.0-5.2)
[2016-09-12 07:51] LABS: CALCIUM, SERUM 9.4 mg/dL (8.5-10.1); CREATININE 5.4 mg/dL (0.6-1.3); POTASSIUM 4.1 mmol/L (3.5-5.1)
[2016-09-12 07:52] LABS: PLATELET COUNT (AUTO) 42 /CMM (150-450); WHITE BLOOD COUNT (AUTO) 1.9 K/uL (4.3-11.0)
[2016-09-12 08:00] VITALS: BP 108/58
[2016-09-12] MEDS: PROPRANOLOL HCL 10 MG TABLET PO SCH (09:00)
[2016-09-12 09:15] LABS: ANISOCYTOSIS 1+; EOSINOPHILS % (MANUAL) 1 % (0-4); LYMPHOCYTES % (MANUAL) 27 % (16-48); PLATELET ESTIMATE DECREASED
[2016-09-12 09:16] LABS: HYPOCHROMASIA 1+
[2016-09-12] MEDS: MIDODRINE HCL (5MG) 5 MG TABLET PO SCH ×3 (09:19→17:00)
[2016-09-12] MEDS: OCTREOTIDE 100 MCG/ML VIAL SQ SCH ×3 (09:20→17:57)
[2016-09-12 16:00] VITALS: BP 133/41
[2016-09-12 20:00] VITALS: BP 120/55
[2016-09-12] MEDS: INSULIN REGULAR, HUMAN 100 UNIT/ML 3 ML VIAL SQ PRN (21:49)
[2016-09-13] MEDS: LACTULOSE 10 G/15 ML UDC (PYXIS) PO SCH ×6 (00:18→21:30)
[2016-09-13 04:00] VITALS: BP 95/42
[2016-09-13 06:44] LABS: BASOPHILS % (AUTO) 0.3 % (0.0-2.0); DIFF TOTAL % 100 %; EOSINOPHILS % (AUTO) 2.3 % (0.0-6.0); HEMATOCRIT 26 % (33-45); HEMOGLOBIN 8.8 g/dL (11.5-14.8); LYMPHOCYTES # (AUTO) 0.3 /CMM (0.8-4.8); LYMPHOCYTES % (AUTO) 15.3 % (20.0-44.0); MEAN CORPUSCULAR HEMOGLOBIN 32 PG (26.0-33.0); MEAN CORPUSCULAR HGB CONC 34 g/dl (31.0-36.0); MEAN CORPUSCULAR VOLUME 94 fL (82-100); MONOCYTES # (AUTO) 0.3 /CMM (0.1-1.30); MONOCYTES % (AUTO) 17.4 % (2.0-12.0); NEUTROPHILS # (AUTO) 1.2 /CMM (1.8-8.9); NEUTROPHILS % (AUTO) 64.7 % (43.0-81.0); RED BLOOD CELL COUNT(AUTO) 2.76 MIL/uL (4.0-5.2)
[2016-09-13 07:05] LABS: CALCIUM, SERUM 9.4 mg/dL (8.5-10.1); CREATININE 6.4 mg/dL (0.6-1.3)
[2016-09-13] MEDS: BLOOD SUGAR DIAGNOSTIC 1 EACH STRIP VI SCH ×4 (07:30→21:33)
[2016-09-13 08:00] VITALS: BP 128/67
[2016-09-13 08:20] LABS: WHITE BLOOD COUNT (AUTO) 1.8 K/uL (4.3-11.0)
[2016-09-13 08:21] LABS: PLATELET COUNT (AUTO) 39 /CMM (150-450)
[2016-09-13 08:37] LABS: BAND % (MANUAL) 2 % (0.0-5.0); EOSINOPHILS % (MANUAL) 3 % (0-4); LYMPHOCYTES % (MANUAL) 19 % (16-48); PLATELET ESTIMATE DECREASED
[2016-09-13] MEDS: OCTREOTIDE 100 MCG/ML VIAL SQ SCH ×3 (08:48→17:54)
[2016-09-13] MEDS: PROPRANOLOL HCL 10 MG TABLET PO SCH (08:50)
[2016-09-13] MEDS: MIDODRINE HCL (5MG) 5 MG TABLET PO SCH ×3 (08:51→17:54)
[2016-09-13] MEDS: PANTOPRAZOLE 40 MG TABLET.DR PO SCH (08:51)
[2016-09-13] MEDS: ALBUMIN 25% 25 GM in PREMIX 1 EA IV PRN ×2 (14:46→14:47)
[2016-09-13 16:00] VITALS: BP 120/34
[2016-09-13] MEDS: INSULIN REGULAR, HUMAN 100 UNIT/ML 3 ML VIAL SQ PRN (17:46)
[2016-09-13 20:00] VITALS: BP 144/69
[2016-09-14] MEDS: LACTULOSE 10 G/15 ML UDC (PYXIS) PO SCH ×6 (01:00→21:00)
[2016-09-14 04:00] VITALS: BP 104/54
[2016-09-14] MEDS: BLOOD SUGAR DIAGNOSTIC 1 EACH STRIP VI SCH ×4 (06:42→21:56)
[2016-09-14] MEDS: PANTOPRAZOLE 40 MG TABLET.DR PO SCH ×2 (06:43→10:11)
[2016-09-14] MEDS: INSULIN REGULAR, HUMAN 100 UNIT/ML 3 ML VIAL SQ PRN ×3 (06:57→21:45)
[2016-09-14 07:16] LABS: BASOPHILS % (AUTO) 0.6 % (0.0-2.0); DIFF TOTAL % 100 %; EOSINOPHILS # (AUTO) 0.1 /CMM (0.0-0.7); EOSINOPHILS % (AUTO) 3.8 % (0.0-6.0); HEMATOCRIT 28 % (33-45); HEMOGLOBIN 9.4 g/dL (11.5-14.8); LYMPHOCYTES # (AUTO) 0.4 /CMM (0.8-4.8); LYMPHOCYTES % (AUTO) 20.9 % (20.0-44.0); MEAN CORPUSCULAR HEMOGLOBIN 31 PG (26.0-33.0); MEAN CORPUSCULAR HGB CONC 34 g/dl (31.0-36.0); MEAN CORPUSCULAR VOLUME 94 fL (82-100); MONOCYTES # (AUTO) 0.3 /CMM (0.1-1.30); MONOCYTES % (AUTO) 15.6 % (2.0-12.0); NEUTROPHILS # (AUTO) 1.2 /CMM (1.8-8.9); NEUTROPHILS % (AUTO) 59.1 % (43.0-81.0); RED BLOOD CELL COUNT(AUTO) 2.98 MIL/uL (4.0-5.2); WHITE BLOOD COUNT (AUTO) 2.1 K/uL (4.3-11.0)
[2016-09-14 07:51] LABS: CALCIUM, SERUM 9.7 mg/dL (8.5-10.1); CREATININE 5.3 mg/dL (0.6-1.3); POTASSIUM 4.3 mmol/L (3.5-5.1)
[2016-09-14 08:00] VITALS: BP 118/64
[2016-09-14 08:50] LABS: PLATELET COUNT (AUTO) 35 /CMM (150-450)
[2016-09-14] MEDS: PROPRANOLOL HCL 10 MG TABLET PO SCH (09:00)
[2016-09-14 09:15] LABS: ANISOCYTOSIS 1+; BAND % (MANUAL) 1 % (0.0-5.0); EOSINOPHILS % (MANUAL) 3 % (0-4); LYMPHOCYTES % (MANUAL) 17 % (16-48); PLATELET ESTIMATE DECREASED
[2016-09-14 09:16] LABS: OVALOCYTES 1+; POIKILOCYTOSIS 1+
[2016-09-14] MEDS: OCTREOTIDE 100 MCG/ML VIAL SQ SCH ×3 (10:12→18:46)
[2016-09-14] MEDS: MIDODRINE HCL (5MG) 5 MG TABLET PO SCH ×3 (10:12→18:46)
[2016-09-14] MEDS ORDERED: EPOETIN ALFA (40,000 UNIT) 40,000 UNIT/ML VIAL SQ SCH (12:30)
[2016-09-14] MEDS: EPOETIN ALFA (20,000 UNIT) 20,000 UNIT/ML VIAL IV SCH (14:13)
[2016-09-14 17:00] VITALS: BP 116/56
[2016-09-14 20:00] VITALS: BP 128/58
[2016-09-15] MEDS: LACTULOSE 10 G/15 ML UDC (PYXIS) PO SCH ×6 (00:14→21:45)
[2016-09-15 04:00] VITALS: BP 114/59
[2016-09-15] MEDS: BLOOD SUGAR DIAGNOSTIC 1 EACH STRIP VI SCH ×4 (06:46→21:45)
[2016-09-15 08:00] VITALS: BP 104/54
[2016-09-15] MEDS: PROPRANOLOL HCL 10 MG TABLET PO SCH (08:08)
[2016-09-15] MEDS: OCTREOTIDE 100 MCG/ML VIAL SQ SCH ×3 (08:42→17:18)
[2016-09-15] MEDS: PANTOPRAZOLE 40 MG TABLET.DR PO SCH (08:43)
[2016-09-15] MEDS: MIDODRINE HCL (5MG) 5 MG TABLET PO SCH ×3 (08:43→17:18)
[2016-09-15] MEDS: INSULIN REGULAR, HUMAN 100 UNIT/ML 3 ML VIAL SQ PRN ×2 (12:33→17:52)
[2016-09-15 16:00] VITALS: BP 119/54
[2016-09-15 20:00] VITALS: BP 149/50
[2016-09-16] MEDS: LACTULOSE 10 G/15 ML UDC (PYXIS) PO SCH ×6 (00:57→21:00)
[2016-09-16 04:00] VITALS: BP 106/60
[2016-09-16 04:13] VITALS: BP 106/60
[2016-09-16 08:00] VITALS: BP 128/58
[2016-09-16 08:11] LABS: CALCIUM, SERUM 9.7 mg/dL (8.5-10.1); CREATININE 7.3 mg/dL (0.6-1.3); POTASSIUM 4.8 mmol/L (3.5-5.1)
[2016-09-16] MEDS: BLOOD SUGAR DIAGNOSTIC 1 EACH STRIP VI SCH ×4 (08:27→21:10)
[2016-09-16 08:36] LABS: BASOPHILS % (AUTO) 0.3 % (0.0-2.0); DIFF TOTAL % 100 %; EOSINOPHILS # (AUTO) 0.1 /CMM (0.0-0.7); EOSINOPHILS % (AUTO) 2.1 % (0.0-6.0); HEMATOCRIT 29 % (33-45); HEMOGLOBIN 9.8 g/dL (11.5-14.8); LYMPHOCYTES # (AUTO) 0.5 /CMM (0.8-4.8); LYMPHOCYTES % (AUTO) 20.4 % (20.0-44.0); MEAN CORPUSCULAR HEMOGLOBIN 32 PG (26.0-33.0); MEAN CORPUSCULAR HGB CONC 34 g/dl (31.0-36.0); MEAN CORPUSCULAR VOLUME 93 fL (82-100); MONOCYTES # (AUTO) 0.3 /CMM (0.1-1.30); MONOCYTES % (AUTO) 13.2 % (2.0-12.0); NEUTROPHILS # (AUTO) 1.6 /CMM (1.8-8.9); PLATELET COUNT (AUTO) 54 /CMM (150-450); RED BLOOD CELL COUNT(AUTO) 3.08 MIL/uL (4.0-5.2); WHITE BLOOD COUNT (AUTO) 2.5 K/uL (4.3-11.0)
[2016-09-16] MEDS: PROPRANOLOL HCL 10 MG TABLET PO SCH (08:47)
[2016-09-16] MEDS: MIDODRINE HCL (5MG) 5 MG TABLET PO SCH ×3 (08:47→17:36)
[2016-09-16] MEDS: OCTREOTIDE 100 MCG/ML VIAL SQ SCH ×3 (08:50→17:36)
[2016-09-16 12:45] LABS: LYMPHOCYTES % (MANUAL) 25 % (16-48); PLATELET ESTIMATE DECREASED
[2016-09-16] MEDS: INSULIN REGULAR, HUMAN 100 UNIT/ML 3 ML VIAL SQ PRN ×2 (12:45→21:16)
[2016-09-16] MEDS ORDERED: SECONDARY IV SET 1 EA INFUS.SET MC ONE (15:41)
[2016-09-16] MEDS: ALBUMIN 25% 25 GM in PREMIX 1 EA IV PRN (15:54)
[2016-09-16 16:00] VITALS: BP 135/63
[2016-09-16 20:00] VITALS: BP 136/61
[2016-09-17] MEDS: LACTULOSE 10 G/15 ML UDC (PYXIS) PO SCH ×5 (00:27→17:01)
[2016-09-17 04:00] VITALS: BP 112/58
[2016-09-17] MEDS: BLOOD SUGAR DIAGNOSTIC 1 EACH STRIP VI SCH ×3 (07:30→17:07)
[2016-09-17 08:00] VITALS: BP_SYST 106; BP_DIAS 42; BP_DIAS 46
[2016-09-17 08:05] LABS: BASOPHILS % (AUTO) 0.2 % (0.0-2.0); DIFF TOTAL % 100 %; EOSINOPHILS % (AUTO) 2.2 % (0.0-6.0); HEMATOCRIT 27 % (33-45); HEMOGLOBIN 9.1 g/dL (11.5-14.8); LYMPHOCYTES # (AUTO) 0.4 /CMM (0.8-4.8); LYMPHOCYTES % (AUTO) 21.6 % (20.0-44.0); MEAN CORPUSCULAR HEMOGLOBIN 31 PG (26.0-33.0); MEAN CORPUSCULAR HGB CONC 33 g/dl (31.0-36.0); MEAN CORPUSCULAR VOLUME 94 fL (82-100); MONOCYTES # (AUTO) 0.3 /CMM (0.1-1.30); MONOCYTES % (AUTO) 15.9 % (2.0-12.0); NEUTROPHILS # (AUTO) 1.2 /CMM (1.8-8.9); NEUTROPHILS % (AUTO) 60.1 % (43.0-81.0); RED BLOOD CELL COUNT(AUTO) 2.92 MIL/uL (4.0-5.2)
[2016-09-17 08:07] LABS: CALCIUM, SERUM 9.4 mg/dL (8.5-10.1); CREATININE 5.9 mg/dL (0.6-1.3); POTASSIUM 4.2 mmol/L (3.5-5.1)
[2016-09-17 08:08] LABS: PLATELET COUNT (AUTO) 43 /CMM (150-450)
[2016-09-17] MEDS: PROPRANOLOL HCL 10 MG TABLET PO SCH (08:10)
[2016-09-17] MEDS: MIDODRINE HCL (5MG) 5 MG TABLET PO SCH ×3 (08:11→17:02)
[2016-09-17] MEDS: PANTOPRAZOLE 40 MG TABLET.DR PO SCH (08:11)
[2016-09-17] MEDS: OCTREOTIDE 100 MCG/ML VIAL SQ SCH ×3 (08:12→17:07)
[2016-09-17 09:09] LABS: LYMPHOCYTES % (MANUAL) 35 % (16-48); PLATELET ESTIMATE DECREASED
[2016-09-17 09:10] LABS: ANISOCYTOSIS 1+
[2016-09-17] MEDS: INSULIN REGULAR, HUMAN 100 UNIT/ML 3 ML VIAL SQ PRN (11:51)
[2016-09-17] MEDS: EPOETIN ALFA (20,000 UNIT) 20,000 UNIT/ML VIAL IV SCH (14:51)
[2016-09-17 16:00] VITALS: BP 128/61
[2016-09-17 17:02] VITALS: BP 128/61
== END 2016-09-17 17:47 | disposition home or self-care (01) | DRG 279 ==
LOC: ER 16:52 → TELE1 20:34 → MEDSG1 08-19 07:43
PROVIDERS: ADMIT Internal Medicine; ATTEND Internal Medicine
PROC: 5A1D60Z (ICD-10-PCS; 2016-08-27)
PROC: 05H533Z Insertion of Infusion Device into Right Subclavian Vein, Percutaneous Approach (ICD-10-PCS; 2016-08-27)
PROC: B546ZZA Ultrasonography of Right Subclavian Vein, Guidance (ICD-10-PCS; 2016-08-27)
PROC: 07DR3ZX Extraction of Iliac Bone Marrow, Percutaneous Approach, Diagnostic (ICD-10-PCS; principal; 2016-08-29)
PROC: 02HV33Z Insertion of Infusion Device into Superior Vena Cava, Percutaneous Approach (ICD-10-PCS; 2016-09-02)
PROC: B548ZZA Ultrasonography of Superior Vena Cava, Guidance (ICD-10-PCS; 2016-09-02)
PROC: 0W9G3ZZ Drainage of Peritoneal Cavity, Percutaneous Approach (ICD-10-PCS; 2016-09-02)
PROC: 30233N1 Transfusion of Nonautologous Red Blood Cells into Peripheral Vein, Percutaneous Approach (ICD-10-PCS; 2016-09-04)
PROC: 30233K1 Transfusion of Nonautologous Frozen Plasma into Peripheral Vein, Percutaneous Approach (ICD-10-PCS; 2016-09-04)
PROC: 30233R1 Transfusion of Nonautologous Platelets into Peripheral Vein, Percutaneous Approach (ICD-10-PCS; 2016-09-06)
PROC: 30233M1 Transfusion of Nonautologous Plasma Cryoprecipitate into Peripheral Vein, Percutaneous Approach (ICD-10-PCS; 2016-09-09)
PROC: 0W9G3ZZ Drainage of Peritoneal Cavity, Percutaneous Approach (ICD-10-PCS; 2016-09-11)
DX: K72.90 Hepatic failure, unspecified without coma (principal); K76.7 Hepatorenal syndrome; E43 Unspecified severe protein-calorie malnutrition; G93.41 Metabolic encephalopathy; N17.9 Acute kidney failure, unspecified; K65.2 Spontaneous bacterial peritonitis; D61.818 Other pancytopenia; R18.8 Other ascites; E87.2 Acidosis; Z99.2 Dependence on renal dialysis; D63.8 Anemia in other chronic diseases classified elsewhere; K74.60 Unspecified cirrhosis of liver; N18.6 End stage renal disease; D69.59 Other secondary thrombocytopenia; K80.20 Calculus of gallbladder without cholecystitis without obstruction; N28.1 Cyst of kidney, acquired; E87.6 Hypokalemia; E83.42 Hypomagnesemia; R73.9 Hyperglycemia, unspecified; B18.2 Chronic viral hepatitis C; B37.0 Candidal stomatitis; D68.4 Acquired coagulation factor deficiency; D73.1 Hypersplenism; J40 Bronchitis, not specified as acute or chronic; K76.6 Portal hypertension
CPT/HCPCS: 36415; 36569; 70450-TC; 71010-TC; 76700-TC; 76942-TC; 80048-TC; 80053-TC; 80076-TC; 81000-TC; 82040-TC; 82105; 82140-TC; 82272-TC; 82550-TC; 82570-TC; 82728-TC; 82746; 82962-TC; 83010; 83540-TC; 83605-TC; 83615-TC; 83690-TC; 83735-TC; 83970; 84100-TC; 84155; 84155-TC; 84165; 84300-TC; 84439-TC; 84443-TC; 85025-TC; 85045-TC; 85385-TC; 85610-TC; 85730-TC; 86704; 86705; 86706; 86709-TC; 86803; 86850-TC; 86901; 86921-TC; 87040-TC; 87070-TC; 87081-TC; 87086-TC; 87340; 88305-TC; 88312-TC; 88342; 89051-TC; 90935-TC; 93930-TC; 93971-TC; A4216; A4606; A6253; A6402; C1750; J0885; J1644; J1815; J1956; J2354; J2405; J3010; J3475; J3490; J7030; J7040; J7050; P9012; P9016-BL; P9017-BL; P9034-BL; P9047; Z7610

== ENCOUNTER 2016-09-22 12:21 | Inpatient (IN) | payer OTHER ==
[~2016-09-22 12:21] MED LIST: DOCU100T9 PO; PROP10TA10 PO
[2016-09-22] MEDS ORDERED: PROP20TA7 PO (13:44)
[2016-09-22] MEDS ORDERED: LACT10SO PO (13:44)
[2016-09-22] MEDS ORDERED: PANT40TA4 PO (13:44)
[2016-09-22] MEDS ORDERED: FURO40TA5 PO (13:44)
[2016-09-22] MEDS ORDERED: Z GUARD REMEDY 2 OZ OINT TP PRN (15:30)
[2016-09-22] MEDS ORDERED: ACETAMINOPHEN 325 MG TABLET PO PRN (15:30)
[2016-09-22] MEDS ORDERED: ONDANSETRON HCL/PF 4 MG/2 ML VIAL IVP PRN (15:30)
[2016-09-22] MEDS ORDERED: LACTULOSE 10 G/15 ML UDC (PYXIS) PO PRN (15:30)
[2016-09-22] MEDS: PANTOPRAZOLE 40 MG TABLET.DR PO SCH (17:00)
[2016-09-22] MEDS: PROPRANOLOL HCL 10 MG TABLET PO SCH (21:00)
[2016-09-23] MEDS: PROPRANOLOL HCL 10 MG TABLET PO SCH ×2 (08:50→21:00)
[2016-09-23] MEDS: PANTOPRAZOLE 40 MG TABLET.DR PO SCH ×2 (08:50→16:25)
[2016-09-23] MEDS: VIT B CMPLX 3/FA/VIT C/BIOTIN 1 TAB TABLET PO SCH (15:05)
[2016-09-23] MEDS ORDERED: PLATELET IV SET 1 EA INFUS.SET MC ONE ×2 (15:20→21:24)
[2016-09-24] MEDS ORDERED: PLATELET IV SET 1 EA INFUS.SET MC ONE ×2 (08:30→15:49)
[2016-09-24] MEDS: VIT B CMPLX 3/FA/VIT C/BIOTIN 1 TAB TABLET PO SCH (08:52)
[2016-09-24] MEDS: PROPRANOLOL HCL 10 MG TABLET PO SCH ×2 (08:53→21:04)
[2016-09-24] MEDS: PANTOPRAZOLE 40 MG TABLET.DR PO SCH ×2 (08:54→18:09)
[2016-09-24] MEDS ORDERED: EPOETIN ALFA (10,000 UNIT) 10,000 UNIT/ML VIAL SQ ONE (15:00)
[2016-09-25] MEDS ORDERED: PLATELET IV SET 1 EA INFUS.SET MC ONE ×2 (06:13→09:30)
[2016-09-25] MEDS: PROPRANOLOL HCL 10 MG TABLET PO SCH ×2 (09:09→21:34)
[2016-09-25] MEDS: PANTOPRAZOLE 40 MG TABLET.DR PO SCH ×2 (09:09→16:45)
[2016-09-25] MEDS: VIT B CMPLX 3/FA/VIT C/BIOTIN 1 TAB TABLET PO SCH (09:09)
[2016-09-26] MEDS: PANTOPRAZOLE 40 MG TABLET.DR PO SCH ×2 (08:51→16:51)
[2016-09-26] MEDS: VIT B CMPLX 3/FA/VIT C/BIOTIN 1 TAB TABLET PO SCH (08:51)
[2016-09-26] MEDS: PROPRANOLOL HCL 10 MG TABLET PO SCH ×2 (08:51→21:00)
[2016-09-26] MEDS ORDERED: SECONDARY IV SET 1 EA INFUS.SET MC ONE (15:32)
[2016-09-26] MEDS ORDERED: ALBUMIN 25% 25 GM in PREMIX 1 EA IV ONE (16:00)
[2016-09-26] MEDS ORDERED: ALBUMIN 25% 25 GM in PREMIX 1 EA IV PRN (16:00)
[2016-09-27] MEDS: VIT B CMPLX 3/FA/VIT C/BIOTIN 1 TAB TABLET PO SCH (08:43)
[2016-09-27] MEDS: PANTOPRAZOLE 40 MG TABLET.DR PO SCH (08:43)
[2016-09-27] MEDS: PROPRANOLOL HCL 10 MG TABLET PO SCH (09:00)
== END 2016-09-27 14:00 | disposition home or self-care (01) | DRG 279 ==
DX: K72.90 Hepatic failure, unspecified without coma (principal); K76.7 Hepatorenal syndrome; G93.41 Metabolic encephalopathy; E43 Unspecified severe protein-calorie malnutrition; D61.818 Other pancytopenia; D68.4 Acquired coagulation factor deficiency; R18.8 Other ascites; N18.6 End stage renal disease; I13.11 Hypertensive heart and chronic kidney disease without heart failure, with stage 5 chronic kidney disease, or end stage renal disease; Z99.2 Dependence on renal dialysis; K80.20 Calculus of gallbladder without cholecystitis without obstruction; K21.9 Gastro-esophageal reflux disease without esophagitis; E87.70 Fluid overload, unspecified; D73.1 Hypersplenism; D63.8 Anemia in other chronic diseases classified elsewhere; N28.1 Cyst of kidney, acquired; D69.59 Other secondary thrombocytopenia; E87.6 Hypokalemia; K74.69 Other cirrhosis of liver; B18.2 Chronic viral hepatitis C

== ENCOUNTER 2016-10-07 15:15 | Inpatient (IN) | payer OTHER ==
[~2016-10-07] VITALS: Ht 152.4 cm; Wt 53.1 kg
[~2016-10-07 15:15] MED LIST changes: -DOCU100T9 PO; +FURO40TA5 PO; +LACT10SO PO; +PANT40TA4 PO; -PROP10TA10 PO; +PROP20TA7 PO
[2016-10-07 16:00] LABS: DIFF TOTAL % 100 %; HEMATOCRIT 28 % (33-45); HEMOGLOBIN 9.1 g/dL (11.5-14.8); LYMPHOCYTES # (AUTO) 0.2 /CMM (0.8-4.8); LYMPHOCYTES % (AUTO) 2.8 % (20.0-44.0); MEAN CORPUSCULAR HEMOGLOBIN 30 PG (26.0-33.0); MEAN CORPUSCULAR HGB CONC 33 g/dl (31.0-36.0); MEAN CORPUSCULAR VOLUME 92 fL (82-100); MONOCYTES # (AUTO) 0.1 /CMM (0.1-1.30); MONOCYTES % (AUTO) 0.9 % (2.0-12.0); NEUTROPHILS # (AUTO) 6.7 /CMM (1.8-8.9); NEUTROPHILS % (AUTO) 96.3 % (43.0-81.0); RED BLOOD CELL COUNT(AUTO) 3.02 MIL/uL (4.0-5.2); WHITE BLOOD COUNT (AUTO) 6.9 K/uL (4.3-11.0)
[2016-10-07] MEDS ORDERED: ONDANSETRON HCL/PF - ER 4 MG/2 ML VIAL IV ONE (16:00)
[2016-10-07] MEDS ORDERED: MORPHINE SULFATE INJ 2 MG/ML DISP.SYRIN IV ONE (16:00)
[2016-10-07] MEDS ORDERED: MORPHINE SULFATE INJ 2 MG/ML DISP.SYRIN ONE ×2 (16:03→21:58)
[2016-10-07] MEDS ORDERED: ONDANSETRON HCL/PF 4 MG/2 ML VIAL ONE (16:03)
[2016-10-07 16:09] LABS: PLATELET COUNT (AUTO) 39 /CMM (150-450)
[2016-10-07 16:15] LABS: INR 1.48 (0.87-1.13); PROTHROMBIN TIME 16.1 SECS (9.5-12.7)
[2016-10-07 16:23] LABS: ALBUMIN 3.2 g/dL (3.4-5.0); BILIRUBIN,DIRECT 3.1 mg/dL (0.0-0.2); BILIRUBIN,TOTAL 5.4 mg/dL (0.2-1.0); CALCIUM, SERUM 10.1 mg/dL (8.5-10.1); CREATININE 5.5 mg/dL (0.6-1.3); INDIRECT BILIRUBIN 2.3 mg/dL (0.0-1.1); POTASSIUM 3.1 mmol/L (3.5-5.1); TOTAL PROTEIN, SERUM 7.1 g/dL (6.4-8.2)
[2016-10-07 16:32] LABS: ANISOCYTOSIS 1+; BAND % (MANUAL) 29 % (0.0-5.0); LYMPHOCYTES % (MANUAL) 4 % (16-48); METAMYELOCYTES % 2 % (0-0); MYELOCYTES % 1 % (0-0); PLATELET ESTIMATE DECREASED
[2016-10-07] MEDS ORDERED: POTASSIUM CHLORIDE 20 MEQ TAB.PRT.SR PO ONE (17:25)
[2016-10-07] MEDS ORDERED: POTASSIUM CHLORIDE 10 MEQ TABLET.SA PO ONE (17:30)
[2016-10-07] MEDS ORDERED: MAGNESIUM HYDROXIDE 30 ML UDC PO PRN ×2 (18:30→19:00)
[2016-10-07] MEDS ORDERED: Z GUARD REMEDY 2 OZ OINT TP PRN ×2 (18:30→19:00)
[2016-10-07] MEDS ORDERED: ONDANSETRON HCL/PF 4 MG/2 ML VIAL IVP PRN ×2 (18:30→19:00)
[2016-10-07] MEDS ORDERED: ACETAMINOPHEN 325 MG TABLET PO PRN ×2 (18:30→19:00)
[2016-10-07] MEDS ORDERED: HYDROCODONE/APAP 10/325MG 1 EA TABLET PO PRN ×2 (18:30→19:00)
[2016-10-07] MEDS ORDERED: HYDROCODONE/APAP 5/325MG 1 EACH TABLET PO PRN ×2 (18:30→19:00)
[2016-10-07] MEDS ORDERED: ZOLPIDEM TARTRATE 5 MG TABLET PO PRN ×2 (18:30→19:00)
[2016-10-07] MEDS ORDERED: MAG HYDROX/AL HYDROX/SIMETH 30 ML UDC PO PRN ×2 (18:30→19:00)
[2016-10-07 19:30] VITALS: BP 126/94
[2016-10-07] MEDS ORDERED: HYDROCODONE/APAP 10/325MG 1 EA TABLET ONE (20:01)
[2016-10-07] MEDS: MORPHINE SULFATE INJ 2 MG/ML DISP.SYRIN IV PRN (22:03)
[2016-10-07] MEDS ORDERED: PLATELET IV SET 1 EA INFUS.SET MC ONE (22:34)
[2016-10-07 22:41] VITALS: BP 97/55
[2016-10-07 23:05] VITALS: BP 98/53
[2016-10-08] VITALS (75 sets, daily range): BP systolic 68–196; BP diastolic 22–114
[2016-10-08] MEDS ORDERED: MORPHINE SULFATE INJ 2 MG/ML DISP.SYRIN ONE ×2 (02:15→06:42)
[2016-10-08] MEDS: MORPHINE SULFATE INJ 2 MG/ML DISP.SYRIN IV PRN ×2 (02:19→06:56)
[2016-10-08] MEDS ORDERED: PANTOPRAZOLE 40 MG TABLET.DR PO SCH ×3 (07:30→09:00)
[2016-10-08 07:43] LABS: BASOPHILS % (AUTO) 0.1 % (0.0-2.0); DIFF TOTAL % 100 %; EOSINOPHILS % (AUTO) 0.3 % (0.0-6.0); HEMATOCRIT 29 % (33-45); HEMOGLOBIN 9.4 g/dL (11.5-14.8); LYMPHOCYTES # (AUTO) 0.5 /CMM (0.8-4.8); LYMPHOCYTES % (AUTO) 6.7 % (20.0-44.0); MEAN CORPUSCULAR HEMOGLOBIN 31 PG (26.0-33.0); MEAN CORPUSCULAR HGB CONC 33 g/dl (31.0-36.0); MEAN CORPUSCULAR VOLUME 94 fL (82-100); MONOCYTES % (AUTO) 0.6 % (2.0-12.0); NEUTROPHILS # (AUTO) 6.8 /CMM (1.8-8.9); NEUTROPHILS % (AUTO) 92.3 % (43.0-81.0); RED BLOOD CELL COUNT(AUTO) 3.07 MIL/uL (4.0-5.2); WHITE BLOOD COUNT (AUTO) 7.4 K/uL (4.3-11.0)
[2016-10-08 08:07] LABS: CALCIUM, SERUM 11.3 mg/dL (8.5-10.1); CREATININE 6.3 mg/dL (0.6-1.3); PHOSPHORUS 7.6 mg/dL (2.5-4.9); POTASSIUM 3.8 mmol/L (3.5-5.1)
[2016-10-08 08:10] LABS: INR 1.76 (0.87-1.13); PROTHROMBIN TIME 19.1 SECS (9.5-12.7)
[2016-10-08 08:16] LABS: PLATELET COUNT (AUTO) 131 /CMM (150-450)
[2016-10-08] MEDS ORDERED: DEXTROSE 50%-WATER 50 ML DISP.SYRIN ONE (08:26)
[2016-10-08 08:57] LABS: ABG BASE EXCESS -20.4 mmol/L; ABG HCO3 6.7 mmol/L; ABG NOTIFIED BY AS RRT.; ABG PCO2 20.1 mmHg (35.0-45.0); ABG PH 7.143 (7.350-7.450); ABG PO2 106.4 mmHg (75.0-100.0); ABG TOTAL HEMOGLOBIN 9.2 G/dL (12.0-16.0); ALLEN TEST Pass; AaDO2 98.2 mmHg; O2Hb 93.1 % (94.0-97.0)
[2016-10-08] MEDS ORDERED: FUROSEMIDE 40 MG TABLET PO SCH (09:00)
[2016-10-08] MEDS: FUROSEMIDE 40 MG TABLET PO SCH (09:00)
[2016-10-08] MEDS ORDERED: VANCOMYCIN 1 GM in IV D5W 250 ML IV SCH (09:30)
[2016-10-08] MEDS ORDERED: SODIUM BICARBONATE 5 ML VIAL IV ONE (09:30)
[2016-10-08] MEDS: PANTOPRAZOLE 40 MG TABLET.DR PO SCH ×2 (09:34→17:00)
[2016-10-08] MEDS ORDERED: IV SET PRIMARY PUMP SET 1 EA INFUS.SET MC ONE ×9 (10:18→20:42)
[2016-10-08] MEDS ORDERED: IV NS 0.9% 500 ML IV ONE ×3 (10:42→18:13)
[2016-10-08] MEDS ORDERED: SODIUM BICARBONATE SYR 50 MEQ/50 ML DISP.SYRIN ONE ×2 (10:42→13:19)
[2016-10-08] MEDS ORDERED: DEXTROSE 50%-WATER 50 ML DISP.SYRIN IVP STA (10:49)
[2016-10-08] MEDS ORDERED: SODIUM BICARBONATE SYR 50 MEQ/50 ML DISP.SYRIN IV ONE (11:00)
[2016-10-08] MEDS ORDERED: DEXTROSE 50%-WATER 50 ML DISP.SYRIN IV PRN (11:30)
[2016-10-08] MEDS ORDERED: INSULIN REGULAR, HUMAN 100 UNIT/ML 3 ML VIAL SQ PRN (11:30)
[2016-10-08] MEDS ORDERED: DEXTROSE 50%-WATER 50 ML DISP.SYRIN IVP ONE (11:30)
[2016-10-08] MEDS: PROPOFOL 100 ML IV PRN ×2 (11:41→22:37)
[2016-10-08] MEDS: Sodium Bicarbonate 100 MEQ in IV D5W 1,000 ML IV PRN (11:42)
[2016-10-08] MEDS: NOREPINEPHRINE 16 MG in IV D5W 500 ML IV PRN ×2 (11:46→19:47)
[2016-10-08 11:56] LABS: BAND % (MANUAL) 29 % (0.0-5.0); LYMPHOCYTES % (MANUAL) 9 % (16-48); METAMYELOCYTES % 5 % (0-0); MYELOCYTES % 2 % (0-0)
[2016-10-08 11:56] LABS: LACTIC ACID 18.7 mmol/L (0.4-2.0)
[2016-10-08 11:57] LABS: ANISOCYTOSIS 1+; BURR CELLS 1+; PLATELET ESTIMATE DECREASED; POIKILOCYTOSIS 1+; POLYCHROMASIA 1+
[2016-10-08 11:58] LABS: *LACTIC ACID REFLEX FLAG YES
[2016-10-08] MEDS ORDERED: FEE PK DOSING 1 MIN EA MC ONE (12:48)
[2016-10-08] MEDS ORDERED: VANCOMYCIN 1 GM in IV D5W 250 ML IV ONE (13:00)
[2016-10-08] MEDS ORDERED: EPOETIN ALFA (10,000 UNIT) 10,000 UNIT/ML VIAL SQ ONE (13:00)
[2016-10-08] MEDS ORDERED: IV NS 0.9% 250 ML IV ONE (13:07)
[2016-10-08] MEDS ORDERED: SECONDARY IV SET 1 EA INFUS.SET MC ONE ×2 (13:07→18:36)
[2016-10-08 13:13] LABS: ABG BASE EXCESS -20.2 mmol/L; ABG HCO3 7.4 mmol/L; ABG PCO2 22.8 mmHg (35.0-45.0); ABG PH 7.127 (7.350-7.450); ABG PO2 181.1 mmHg (75.0-100.0); ALLEN TEST Pass; AaDO2 149.8 mmHg; O2Hb 96.6 % (94.0-97.0)
[2016-10-08] MEDS: MEROPENEM 500 MG in IV NS 0.9% 50 ML IV SCH ×2 (13:48→20:16)
[2016-10-08] MEDS: BLOOD SUGAR DIAGNOSTIC 1 EACH STRIP IN SCH ×3 (13:49→23:36)
[2016-10-08] MEDS ORDERED: SUCCINYLCHOLINE CHLORIDE 20 MG/ML VIAL IV ONE (15:45)
[2016-10-08] MEDS ORDERED: ETOMIDATE 2 MG/ML VIAL IV ONE (15:45)
[2016-10-08] MEDS: PHENYLEPHRINE 80 MG in IV D5W 250 ML IV PRN (15:58)
[2016-10-08] MEDS: VASOPRESSIN INJ 50 UNIT in IV D5W 497.5 ML IV PRN (18:06)
[2016-10-08] MEDS: METRONIDAZOLE 500MG/ NS 100ML 500 MG in PREMIX 1 EA IV SCH (18:36)
[2016-10-09] VITALS (108 sets, daily range): BP systolic 41–134; BP diastolic 27–75
[2016-10-09] MEDS ORDERED: PHENYLEPHRINE 10 MG/ML VIAL ONE ×2 (00:19→04:07)
[2016-10-09] MEDS: METRONIDAZOLE 500MG/ NS 100ML 500 MG in PREMIX 1 EA IV SCH ×3 (00:19→17:16)
[2016-10-09] MEDS: PHENYLEPHRINE 80 MG in IV D5W 250 ML IV PRN ×6 (00:28→21:48)
[2016-10-09] MEDS: NOREPINEPHRINE 16 MG in IV D5W 500 ML IV PRN ×3 (02:16→15:58)
[2016-10-09] MEDS ORDERED: IV D5W 1,000 ML IV ONE (03:04)
[2016-10-09] MEDS ORDERED: SODIUM BICARBONATE SYR 50 MEQ/50 ML DISP.SYRIN ONE (03:05)
[2016-10-09] MEDS: Sodium Bicarbonate 100 MEQ in IV D5W 1,000 ML IV PRN (03:20)
[2016-10-09 05:02] LABS: EOSINOPHILS # (AUTO) 0.3 /CMM (0.0-0.7); EOSINOPHILS % (AUTO) 3.6 % (0.0-6.0); HEMATOCRIT 28 % (33-45); HEMOGLOBIN 8.7 g/dL (11.5-14.8); LYMPHOCYTES # (AUTO) 0.3 /CMM (0.8-4.8); LYMPHOCYTES % (AUTO) 4.2 % (20.0-44.0); MEAN CORPUSCULAR HEMOGLOBIN 30 PG (26.0-33.0); MEAN CORPUSCULAR HGB CONC 31 g/dl (31.0-36.0); MEAN CORPUSCULAR VOLUME 97 fL (82-100); MONOCYTES # (AUTO) 0.1 /CMM (0.1-1.30); MONOCYTES % (AUTO) 1.1 % (2.0-12.0); NEUTROPHILS # (AUTO) 7.3 /CMM (1.8-8.9); NEUTROPHILS % (AUTO) 91.1 % (43.0-81.0); RED BLOOD CELL COUNT(AUTO) 2.85 MIL/uL (4.0-5.2)
[2016-10-09 05:21] LABS: CALCIUM, SERUM 9.2 mg/dL (8.5-10.1); CREATININE 4.4 mg/dL (0.6-1.3); PHOSPHORUS 7.4 mg/dL (2.5-4.9); POTASSIUM 4.8 mmol/L (3.5-5.1)
[2016-10-09 05:53] LABS: PLATELET COUNT (AUTO) 42 /CMM (150-450)
[2016-10-09] MEDS: BLOOD SUGAR DIAGNOSTIC 1 EACH STRIP IN SCH ×3 (05:54→17:42)
[2016-10-09 08:17] LABS: ABG BASE EXCESS -24.2 mmol/L; ABG HCO3 5.2 mmol/L; ABG PCO2 21.3 mmHg (35.0-45.0); ABG PH 7.007 (7.350-7.450); ABG PO2 117.1 mmHg (75.0-100.0); ABG TOTAL HEMOGLOBIN 9.1 G/dL (12.0-16.0); ALLEN TEST Pass; AaDO2 143.6 mmHg; O2Hb 93.7 % (94.0-97.0)
[2016-10-09 08:20] LABS: BAND % (MANUAL) 12 % (0.0-5.0); LYMPHOCYTES % (MANUAL) 15 % (16-48)
[2016-10-09 08:23] LABS: ANISOCYTOSIS 1+; HYPOCHROMASIA 1+; PLATELET ESTIMATE DECREASED; POIKILOCYTOSIS 1+
[2016-10-09 08:24] LABS: BURR CELLS 1+
[2016-10-09] MEDS: MEROPENEM 500 MG in IV NS 0.9% 50 ML IV SCH (08:38)
[2016-10-09] MEDS: PANTOPRAZOLE 40 MG TABLET.DR PO SCH ×2 (08:42→17:00)
[2016-10-09] MEDS: FUROSEMIDE 40 MG TABLET PO SCH (08:42)
[2016-10-09] MEDS ORDERED: Sodium Bicarbonate 150 MEQ in IV D5W 1,000 ML IV PRN (09:27)
[2016-10-09] MEDS ORDERED: VANCOMYCIN 500 MG in IV D5W 100 ML IV PRN (13:00)
[2016-10-09] MEDS ORDERED: VANCOMYCIN 500 MG in IV D5W 100 ML IV ONE (16:00)
[2016-10-09] MEDS: VASOPRESSIN INJ 50 UNIT in IV D5W 497.5 ML IV PRN (17:12)
[2016-10-10] VITALS: BP 96/50
[2016-10-10 00:15] VITALS: BP 101/50
[2016-10-10] MEDS: BLOOD SUGAR DIAGNOSTIC 1 EACH STRIP IN SCH (00:20)
[2016-10-10] MEDS: METRONIDAZOLE 500MG/ NS 100ML 500 MG in PREMIX 1 EA IV SCH (00:21)
[2016-10-10] MEDS: NOREPINEPHRINE 16 MG in IV D5W 500 ML IV PRN (00:26)
[2016-10-10 00:30] VITALS: BP 98/51
[2016-10-10 00:45] VITALS: BP 99/48
[2016-10-10] MEDS ORDERED: MEROPENEM 500 MG in IV NS 0.9% 50 ML IV SCH (09:00)
== END 2016-10-10 01:05 | disposition expired | DRG 720 ==
LOC: ER 15:17 → MEDSG2 19:38 → ICU 10-08 10:40
DX: A41.9 Sepsis, unspecified organism (principal); R65.21 Severe sepsis with septic shock; E43 Unspecified severe protein-calorie malnutrition; K55.9 Vascular disorder of intestine, unspecified; D61.818 Other pancytopenia; D68.9 Coagulation defect, unspecified; J96.01 Acute respiratory failure with hypoxia; J96.02 Acute respiratory failure with hypercapnia; N18.6 End stage renal disease; I13.11 Hypertensive heart and chronic kidney disease without heart failure, with stage 5 chronic kidney disease, or end stage renal disease; K76.6 Portal hypertension; K74.60 Unspecified cirrhosis of liver; Z99.2 Dependence on renal dialysis; K21.9 Gastro-esophageal reflux disease without esophagitis; D73.1 Hypersplenism; K80.20 Calculus of gallbladder without cholecystitis without obstruction; N28.1 Cyst of kidney, acquired; B19.20 Unspecified viral hepatitis C without hepatic coma; D63.8 Anemia in other chronic diseases classified elsewhere; D69.59 Other secondary thrombocytopenia; E16.2 Hypoglycemia, unspecified; E87.2 Acidosis; I95.3 Hypotension of hemodialysis; Z66 Do not resuscitate
CPT/HCPCS: 31720; 36415; 36600; 71010-TC; 74000-TC; 80048-TC; 80076-TC; 80202-TC; 82140-TC; 82962-TC; 83605-TC; 83690-TC; 83735-TC; 84100-TC; 85025-TC; 85610-TC; 85730-TC; 86850-TC; 87040-TC; 87081-TC; 87186-TC; 90935-TC; 94002; 94002-TC; 94003-TC; 94799-TC; A4216; A4606; A6402; A6403; C1751; J0330; J0885; J1815; J2185; J2270; J2370; J2405; J3370; J3490; J7040; J7050; J7060; J7070; P9016-BL; P9034-BL; Z7610